=== PATIENT | male | born 1950 | race Caucasian/White ===

== ENCOUNTER 2024-12-24 12:24 | Inpatient (IN) | payer OTHER, SELFPAY ==
[2024-12-24] VITALS (12 sets, daily range): BP systolic 107–198; BP diastolic 75–115; BMI 29.4; BMI 29.7
--- NOTE | 2024-12-24 08:39 | ED.GENMED ---
History of Present Illness
<MICHELLE Mackey Jr. Last Filed: 12/24/24 10:42>
General
Chief Complaint: Breathing Problem
Source: patient
Exam Limitations: none
Time Seen by Provider: 12/24/24 08:31
Nursing documentation reviewed up to this point in time: agreed with
History of Present Illness
History of Present Illness:
74-year-old male without significant chronic medical conditions presenting to the emergency department today with concerns of worsening shortness of breath and dyspnea on exertion as well as coughing up some clear phlegm worsening over the past
week. Seem to start with some noticeable leg swelling which has progressed over the past week. Denies history of such. Is a smoker denies daily drinking no known heart disease. No specific chest pain at any point no recent fevers or upper
respiratory illnesses
Review of Systems
<MICHELLE Mackey Jr. Last Filed: 12/24/24 10:42>
Review of Systems
Allergies reviewed?: Yes
All Other Systems: ROS reviewed and negative except as documented in HPI and ROS
Phy Exam
<MICHELLE Mackey Jr. Last Filed: 12/24/24 10:42>
Physical Exam
Physical Exam:
GENERAL: Alert , in no apparent distress
EYE: pupils equal and reactive
NECK: Supple, no significant adenopathy.
ENT: o/p clr, mmm.
CARDIAC: Regular rate and rhythm .
LUNGS: Clear breath sounds bilaterally, no acute respiratory distress, no wheezes/rales/rhonchi
ABDOMEN: Soft, without focal tenderness, no r/g, no cvat
NEUROLOGICAL: Alert and oriented, no focal neuro deficits
SKIN: Warm and dry, skin intact.
MUSCULOSKELETAL: +2 pitting edema distal to the knees bilaterally, well perfused.
PSYCH: Normal and appropriate interaction.
Scores
<MICHELLE Mackey Jr. Filed: 12/24/24 10:42>
Heart Failure Risk
Heart Failure Risk Score: Not Applicable
Course
<Justino Chau Jr., PA-C - Last Filed: 12/24/24 10:42>
Orders/Labs/Results
Orders:
Orders
12/24/24 08:25
Electrocardiogram (*1) Urgent
Reason for Study: Shortness of Breath
EKG- Treatment ONCE
12/24/24 08:38
Cardiac Monitoring- Treatment ONCE
CR Chest - 2 Views Urgent
Comment:
Reason For Exam: sob swelling
12/24/24 08:41
Complete Blood Count/With Diff Urgent
Comprehensive Metabolic Panel Urgent
Magnesium Urgent
NT-proBNP Urgent
Troponin I Urgent
12/24/24 09:30
Furosemide [Lasix] 40 mg IV NOW STA
12/24/24 09:46
Nitroglycerin Ointment [Nitro-Bid] 1 inch TOPICAL NOW STA
12/24/24 10:06
Urinalysis Reflex To Culture Urgent
Date Specimen was Collected: 12/24/24
Time Specimen was Collected: 09:42
Urine Microscopic Reflex Cult Urgent
Abnormal Lab Results
12/24/24 12/24/24
08:41 10:06
Hct 52.1 H %
(39.0-52.0)
MCV 95.9 H fL
(80.0-94.0)
MCHC 31.9 L g/dL
(33.0-37.0)
Absolute Neuts (auto) 6.8 H 10^3/uL
(1.4-6.5)
Absolute Monos (auto) 1.1 H 10^3/uL
(0.1-0.6)
Lymphocytes % 16.0 L %
(20.5-51.1)
Monocytes % 11.1 H %
(1.7-9.3)
Chloride 96 L mmol/L
(98-107)
Carbon Dioxide 35 H mmol/L
(22-30)
Glucose 111 H mg/dl
(70-99)
Urine Albumin (Reflex) 3+ A
(Neg - Trace)
12/24/24 08:41
12/24/24 08:41
Vital Signs
Initial and Last Documented VS:
Initial Vital Signs
Temp Pulse Resp BP Pulse Ox
98.4 F 108 24 178/108 88
12/24/24 08:19 12/24/24 08:19 12/24/24 08:19 12/24/24 08:19 12/24/24 08:19
Last Documented Vital Signs
Temp Pulse Resp BP Pulse Ox
98.6 F 108 24 193/104 95
12/24/24 08:38 12/24/24 08:19 12/24/24 08:19 12/24/24 09:44 12/24/24 08:37
<Ancelmo Martínez, - Last Filed: 12/24/24 08:49>
Orders/Labs/Results
Orders:
Orders
12/24/24 08:25
Electrocardiogram (*1) Urgent
Reason for Study: Shortness of Breath
EKG- Treatment ONCE
12/24/24 08:38
Cardiac Monitoring- Treatment ONCE
CR Chest - 2 Views Urgent
Comment:
Reason For Exam: sob swelling
12/24/24 08:41
Complete Blood Count/With Diff Urgent
Comprehensive Metabolic Panel Urgent
Magnesium Urgent
NT-proBNP Urgent
Troponin I Urgent
12/24/24 09:30
Furosemide [Lasix] 40 mg IV NOW STA
12/24/24 09:46
Nitroglycerin Ointment [Nitro-Bid] 1 inch TOPICAL NOW STA
12/24/24 10:06
Urinalysis Reflex To Culture Urgent
Date Specimen was Collected: 12/24/24
Time Specimen was Collected: 09:42
Urine Microscopic Reflex Cult Urgent
Abnormal Lab Results
12/24/24 12/24/24
08:41 10:06
Hct 52.1 H %
(39.0-52.0)
MCV 95.9 H fL
(80.0-94.0)
MCHC 31.9 L g/dL
(33.0-37.0)
Absolute Neuts (auto) 6.8 H 10^3/uL
(1.4-6.5)
Absolute Monos (auto) 1.1 H 10^3/uL
(0.1-0.6)
Lymphocytes % 16.0 L %
(20.5-51.1)
Monocytes % 11.1 H %
(1.7-9.3)
Chloride 96 L mmol/L
(98-107)
Carbon Dioxide 35 H mmol/L
(22-30)
Glucose 111 H mg/dl
(70-99)
Urine Albumin (Reflex) 3+ A
(Neg - Trace)
12/24/24 08:41
12/24/24 08:41
Vital Signs
Initial and Last Documented VS:
Initial Vital Signs
Temp Pulse Resp BP Pulse Ox
98.4 F 108 24 178/108 88
12/24/24 08:19 12/24/24 08:19 12/24/24 08:19 12/24/24 08:19 12/24/24 08:19
Last Documented Vital Signs
Temp Pulse Resp BP Pulse Ox
98.6 F 108 24 193/104 95
12/24/24 08:38 12/24/24 08:19 12/24/24 08:19 12/24/24 09:44 12/24/24 08:37
<Justino Chau Jr., PA-C - Last Filed: 12/24/24 10:42>
MDM/Problems Addressed
MDM/Problems Addressed:
74-year-old male presenting to the emergency department today with concerns of worsening shortness of breath leg swelling and dyspnea on exertion over the past week. Significant today. Exercise tolerance very low. Here legs are very swollen pulse
ox initially in the high 80s but improving with nasal cannula. Initially tachycardic and hypertensive with started on Nitropaste also given Lasix. Labs showing significantly elevated BNP other labs unremarkable troponin negative patient will be
admitted for further treatment and monitoring.
<Justino Chau Jr., PA-C - Last Filed: 12/24/24 10:42>
*Critical Care Note
Total Time (30-74mins, 75-104mins- exclusive of procedures): Not Applicable
ED Attending Note
<Justino Chau Jr., PA-C - Last Filed: 12/24/24 10:42>
-
Portions of this chart may have been created with voice recognition software.� Occasional wrong word or��sound alike� substitutions may have occurred due to the inherent limitations of voice recognition software.
<Ancelmo Martínez DO - Last Filed: 12/24/24 08:49>
ED Attending Note
Patient seen and examined by attending physician: Yes
I performed the substantive portion of visit, reviewed & personally made and approve the management plan that is documented in note by myself or PRETTY.: Yes
ED Attending Note:
74-year-old male who presents with shortness of breath. Reports has been ongoing for about a week but over the last 2 days started to see his leg swell. Patient does report a little bit of phlegm production he states it is either white or yellow.
Admits that he does not see a doctor regularly and has no documented medical problems. Admits he has been smoking for 57 years. Still smokes about half a pack a day. Denies true orthopnea. Denies fevers. No hemoptysis. Exam: Poor air movement
bilaterally. Wheezing noted. Slightly tachypneic. Pulse ox 95% on my assessment on 4 L. Significant bilateral lower extremity edema noted with some erythroderma. Assessment and plan: CHF versus COPD. May be combination of both. Could benefit
from diuresis given his right heart failure. Check chest x-ray, labs, anticipate admission. Maintain pulse ox greater than 90%
Discharge Plan
Departure
Patient Disposition: Admit
Date of Disposition: 12/24/24
Time of Disposition: 10:35
Admit to: Telemetry
Admit to doctor: José Luis
Presentation/result/management discussed w/ accepting MD/DO: Hospitalist
Patient with high blood pressure during this ER visit?: No
Condition: Good
Covid-19: Not Applicable
Discharge Problem:
Heart failure
Prescriptions:
No Action
No Current Medications
0
Referrals:
NONE,* [Family Provider, Internal Medicine]
Interventions
Interventions:
*Risk Screen - Suicide Last Done: 12/24/24 08:19
*General Assessment Last Done: 12/24/24 08:39
*Neglect/Abuse Screening Last Done: 12/24/24 08:19
ED- Cardiac Assessment Last Done: 12/24/24 08:54
ED- Pulmonary Assessment Last Done: 12/24/24 08:54
Discharge Date and Time
Print Language: CZECH
[2024-12-24 08:54] LABS: % Basophils 0.7 % (0-2); % Eosinophils 0.5 % (0-6); % Immature Granulocytes 0.2 % (0-0.5); % Monocytes 11.1 % (1.7-9.3); % Neutrophils 71.5 % (42.2-75.2); Absolute Basophils 0.1 10^3/uL (0-0.2); Absolute Eosinophils 0.1 10^3/uL (0-0.7); Absolute Lymphocytes 1.5 10^3/uL (1.2-3.4); Absolute Monocytes 1.1 10^3/uL (0.1-0.6); Absolute Neutrophils 6.8 10^3/uL (1.4-6.5); Hematocrit 52.1 % (39.0-52.0); Hemoglobin 16.6 g/dL (13.0-18.0); Mean Corp Hgb Conc. 31.9 g/dL (33.0-37.0); Mean Corpuscular Hgb 30.6 pg (27.0-31.0); Mean Corpuscular Volume 95.9 fL (80.0-94.0); Mean Platelet Volume 8.5 fL (7.4-10.4); Nucleated Red Blood Cells % 0 % (-); Platelet Count 269 10^3/uL (130-400); Red Blood Cell Count 5.43 10^6/uL (4.70-6.10); Red Cell Dist. Width 13.7 % (11.5-14.5); White Blood Cell Count 9.5 10^3/uL (4.8-10.8)
[2024-12-24 09:11] LABS: ALT (SGPT) 25 U/L (0-50); AST (SGOT) 28 U/L (17-59); Albumin 3.8 g/dl (3.5-5.0); Alkaline Phosphatase 81 U/L (38-126); Blood Urea Nitrogen 18 mg/dl (9-20); Calcium 8.8 mg/dl (8.4-10.2); Carbon Dioxide 35 mmol/L (22-30); Chloride 96 mmol/L (98-107); Estimated Creatinine Clearance 97 ml/min; Glucose 111 mg/dl (70-99); Magnesium 1.8 mg/dl (1.6-2.3); Potassium 4.3 mmol/L (3.5-5.1); Sodium 135 mmol/L (135-145); Total Bilirubin 1.1 mg/dl (0.2-1.3); Total Protein 6.8 g/dl (6.3-8.2); eGFR > 60.00
[2024-12-24 09:18] LABS: NT-proBNP 6750 pg/ml; Troponin I 0.026 ng/ml
[2024-12-24] MEDS: LASIX 40 MG IV ×2 (09:44→15:25)
[2024-12-24] MEDS: NITRO-BID 1 INCH TOPICAL (09:50)
[2024-12-24 10:20] LABS: Urine Albumin 3+ (Neg - Trace); Urine Bilirubin Negative (Negative); Urine Character Clear (Clear); Urine Color Yellow; Urine Glucose Negative (Negative); Urine Ketone Negative (Negative); Urine Leukocyte Negative (Negative); Urine Nitrite Negative (Negative); Urine Occult Blood Negative (Negative); Urine Specific Gravity 1.005 (<1.030); Urine Urobilinogen 1+ (Neg - 1+)
[2024-12-24 10:32] LABS: Urine Mucus Few
[2024-12-24 10:33] LABS: Urine Red Blood Cell 0-2 /HPF (0-2); Urine Urothelial Cell 0-2 /LPF (FEW); Urine White Cell 0-2 /HPF (0-5)
--- NOTE | 2024-12-24 11:48 | HPS.HSE ---
Family Physician
-
Family Physician: * NONE
Chief Complaint
-
Bilateral Lower Extremity Swelling, Shortness of Breath
History of Present Illness
74 y/o male who denied having any past medical history except chronic tobacco smoking and hernia repair, presented with swelling of his legs for the past ~1 week. Patient also has had some shortness of breath for the same duration, also reported
some chest congestion and phlegm production. He denied any chest pain or any pain in his legs from walking. He denied fever, chills, or any other complaints.
Medical History
Past Medical History
Past Medical History: Reports Other (As per HPI above)
Past Surgical History: Reports Other (Hernia Surgery)
Social History
Tobacco: Smoker
Alcohol: None
Drug: None
Family History
Family History: Not pertinent
Allergies / Home Medications
Allergies reflects when Allergies were last updated in [facility].
Home Medications with original date entered in [facility]
Allergy/Medication List:
Allergies
Allergy/AdvReac Type Severity Reaction Status Date / Time
No Known Allergies Allergy Unverified 12/24/24 08:23
Home Medications
No Meds [No Current Medications] 12/24/24
Review of Systems
-
A 12 point ROS was completed and negative except as noted: Yes
Physical Exam
Vital Signs
Vital Signs
Temp Pulse Resp BP Pulse Ox
98.6 F 104 31 178/107 91
12/24/24 08:38 12/24/24 11:15 12/24/24 11:15 12/24/24 11:00 12/24/24 11:00
Physical Exam
General: No Apparent Distress, Comfortable and Conversant
HEENT: NormoCephalic, Moist mucous membranes and Atraumatic
Respiratory: Decreased Breath Sounds
Cardiac: S1/S2 and Regular Rhythm
GI: Soft, Non Tender and Normal Bowel Sounds
Musculoskeletal: No Cyanosis, Edema, Left Lower Extremity and Edema, Right Lower Extremity
Skin: Warm and Dry
Neuro: Awake, Alert, AO x 3 and Nonfocal/grossly intact
Psych: Calm and Intact Judgment/Insight
Laboratory Results
-
12/24/24 08:41
12/24/24 08:41
Laboratory Results
Total Bilirubin 1.1 mg/dl (0.2-1.3) 12/24/24:
AST 28 U/L (17-59) 12/24/24:
ALT 25 U/L (0-50) 12/24/24:
Alkaline Phosphatase 81 U/L (38-126) 12/24/24 08:41
Troponin I 0.026 ng/ml 12/24/24 08:41
Impression/Plan
-
Assessment Plan
Presentation with Bilateral Lower Extremity Swelling and Shortness of Breath Suspected Secondary to Congestive Heart Failure
Significantly High ProBNP
Suspected Acute Heart Failure of Unknown Type
-Continue IV Lasix 40 mg BID
-Will need guideline directed medical therapy
-Daily weights
-I's and O's
-Admit to telemetry
-Consult cardiology
Suspected COPD
-Suggested by patient's x-ray showing hyperinflated lungs and also significant smoking history
-Patient denied any history of COPD
-No pneumonia on chest x-ray
-Will consult pulmonary given suspected undiagnosed COPD in the setting of hypoxia and suspected new CHF
Hypertensive Urgency
-Nitropaste given in the ER with some improvement
-Will optimize antihypertensive regimen
-Low sodium diet
Chronic Tobacco Use
DVT Prophylaxis: Lovenox
Code Status: DNR and DNI (at the time of admission, patient had full-decision making capacity and he confirmed that he is a DNR and DNI and he fully understood what DNR and DNI meant)
--- NOTE | 2024-12-24 13:09 | CON.CAR ---
Addendum entered and electronically signed by Glen Soliz MD 12/24/24 16:28:
Patient seen and examined in collaboration with [employer]; agree with below.
- 74-year-old male with untreated hypertension (does not follow with doctors regularly) and chronic continued cigarette use (+50 years) presenting with shortness of breath; cardiology was consulted for concern for CHF.
- The patient's BNP is elevated at 6750, and the patient's blood pressure is uncontrolled at 198/109 mmHg.
- Chest x-ray shows COPD.
- Patient presenting with hypertensive crisis; blood pressure remains uncontrolled.
- Mild edema on examination.
- Recommend Lasix 40 mg IV BID.
- Will order an echocardiogram.
- D-dimer elevated; patient should be ruled out for pulmonary embolism.
- Will place on valsartan 160 mg daily and Coreg 6.25 mg BID.
- secured entrance monitor.
- CHF education.
- Pulmonary consultation for management of COPD.
- Will follow.
Original Note:
Consultation
Consultation Request
Date/Time Consultation Requested: 12/24/24 1238
Date/Time Consultation Performed: 12/24/24 1300
Requesting Provider: Dr. Christina
Performing Provider: Raegan TY for Dr. Soliz
Reason for Consultation: CHF, HTN
Medical History
-
Chief Complaint: cough, LE edema
History of Present Illness:
74 y/o male with no known medical history (does not see doctors regularly) and current smoker who is here for cough x 2 weeks, then LE edema. He has chronic DESHPANDE, but it has not worsened of recent. He was hypoxic in the 80's and is now on O2 by MO.
BP is severely elevated. He has been administered Lasix and nitropaste. We are consulted for CHF and HTN.
Past Medical History
Past Medical History: None (does not see doctors regularly, so no known medical history )
Social History
Tobacco: Smoker (1/2 PPD 58 years)
Alcohol: Occasional
Drug: None
Family History
Family History: Reviewed & Not Pertinent
Allergies / Home Medications
Allergy/AdvReac Type Severity Reaction Status Date / Time
No Known Allergies Allergy Unverified 12/24/24 08:23
�Medication �Instructions �Recorded �Confirmed �Type
No Meds [No Current Medications] 12/24/24 12/24/24 History
Review of Systems
-
History Source: Patient
All other systems: Negative unless noted
Respiratory: Cough and Trouble Breathing (chronic DESHPANDE)
Musculoskeletal: Edema
Physical Exam
Vital Signs
Temp Pulse Resp BP Pulse Ox
98.6 F 104 31 178/107 91
12/24/24 08:38 12/24/24 11:15 12/24/24 11:15 12/24/24 11:00 12/24/24 11:00
Lab Results
12/24/24 08:41
12/24/24 08:41
Troponin I 0.026 ng/ml 12/24/24 08:41
Hmw-I-Ddygvpjouik Pept 6750 pg/ml 12/24/24 08:41
Physical Exam
General: Well Developed, Well Nourished and No Apparent Distress
HEENT: Normocephalic and Anicteric
Respiratory: Other (diminished to BL bases; on O2 by NC)
Cardiac: Regular Rhythm
Musculoskeletal: Edema
Skin: Warm, Dry and Other (RLE red and warm)
Neuro: AO x 3
Psych: Calm
Impression / Plan
-
Acute HF, type unknown:
-agree with IV diuresis, which requires intensive monitoring
-obtain echo
-CHF education
Hypertension, severely elevated in ER:
-nitro-paste placed and IV Lasix administered
-also add ARB
Tobacco abuse:
-recommend total cessation
-pulmonary consulted for suspected COPD (which is contributing to SOB)
LE edema:
-monitor with diuresis
-RLE is red and warm- u/s negative. Will check d-dimer. Denies fever or chills. W/u per primary team.
Data Reviewed
-
EKG: Tracing Personally Visualized and interpreted (ST 103 BPM)
Radiology: Report Reviewed by me (CXR: Hyperinflated lungs suggesting COPD. No radiographic findings to suggest pneumonia or pulmonary edema.)
Medical Tests (Nuc Med, Echo etc): Other (echo ordered)
Labs: Labs Reviewed by me
[2024-12-24 14:54] LABS: Troponin I 0.023 ng/ml
--- NOTE | 2024-12-24 15:10 | PTCARENOTE ---
Received pt from ED into room 405-2. Pt ambulatory to bed with no assistance. Pt AAOx3. Hypertensive. RLE warm, red with +2 swelling. Sinus tachycardia/NSR on compliance monitor. Reports no pain. Pt oriented to room, no complaints at this time.
[2024-12-24 15:18] LABS: INR 1.08; PT 14.5 Sec (11.4-14.6)
[2024-12-24] MEDS: DIOVAN 160 MG PO (15:25)
--- NOTE | 2024-12-24 16:27 | CON.PUL ---
Consultation
Consultation Request
Date/Time Consultation Requested: 12/24/2024
Date/Time Consultation Performed: 12/24/2024
Requesting Provider: Dr. Power
Performing Provider: Dr. Dell Felder
Reason for Consultation: COPD-possible exacerbation
Medical History
-
History of Present Illness:
74-year-old man who denied any significant past medical history, tobacco abuse, presented with lower extremity swelling for the last week. Also reports exertional shortness of breath for 1 to 2 weeks associated with chest congestion and phlegm
production.
Denies exertional chest pain. Denies leg discoloration fevers or chills.
Denies hemoptysis or phlegm production.
Does report chronic shortness of breath, symptoms worsened over the last week.
Chronic shortness of breath has been for years with activity.
Used to smoke a pack a day for 58 years. More recently has cut down.
His weight has been stable.
No prior diagnosis of COPD.
Past Medical History
Past Medical History: Other (See assessment and plan)
Social History
Tobacco: Smoker
Alcohol: None
Drug: None
Family History
Family History: Reviewed & Not Pertinent
Allergies / Home Medications
Allergies
Allergy/AdvReac Type Severity Reaction Status Date / Time
No Known Allergies Allergy Unverified 12/24/24 08:23
Home Medications
�Medication �Instructions �Recorded �Confirmed �Last Taken �Type
No Meds [No Current Medications] 12/24/24 12/24/24 Unknown History
Review of Systems
-
History Source: Patient
All other systems: Negative unless noted
Vitals / Labs / Diagnostic Testing
Vital Signs
Temp Pulse Resp BP Pulse Ox
98.5 F 107 20 188/104 92
12/24/24 14:30 12/24/24 14:30 12/24/24 14:30 12/24/24 14:30 12/24/24 15:17
Lab Data
12/24/24 08:41
12/24/24 08:41
Laboratory Results
12/24/24
14:53
PT 14.5
INR 1.08
Diagnostic Testing:
Physical Exam
-
HEENT: Normocephalic
Cardiovascular: S1/S2 and Peripheral Edema (2+ bilateral-erythema noted.)
Respiratory: Wheeze (n) and Non-Labored Respirations
GI: Soft and Non Distended
Neurology: Awake, Alert and AO x 3
Skin: Warm
General: Comfortable
Assessment
-
74-year-old man without significant past medical history, does not take any medication. Come to the hospital complaining of 1 week of exertional shortness of breath. Also lower extremity edema. Chest x-ray showed hyperinflation. We were
consulted evaluation of possible COPD on 12/24/2024.
Exertional dyspnea:
Hypoxemic respiratory failure-currently on 3 L per L
New onset heart failure-unknown type
Shortness of breath/lower extremity edema/increased proBNP-6750
Chest x-ray 12/24/2024: Reviewed showed hyperinflation. No acute infiltrate.
Negative troponin
EKG: Sinus tachycardia. Possible left atrial enlargement.
Pulmonary embolism cannot be ruled out.
Uncontrolled hypertension
Lower extremity swelling, mild erythema bilaterally.
Dopplers: No evidence for DVT
Possible COPD: Without exacerbation.
Tobacco abuse
Assessment and plan:
Clinical picture suggest heart failure-unknown time. Increased proBNP, lower extremity edema.
Chest x-ray without significant infiltrates or pulmonary edema.
With mildly increased D-dimer/bilateral lower extremity edema cannot rule out pulmonary embolism-obtain CT angiogram. Will follow.
Monitor renal function postcontrast.
-
Echocardiogram pending
Diuresis as the patient is hypertensive
Cardiology has been consulted
-
From the pulmonary perspective: Not bronchospastic
Patient does have a component of chronic exertional dyspnea which could be explained by COPD. Not in acute exacerbation at the moment.
Chest x-ray with hyperinflation
Patient is a smoker-40+ pack year history of smoking. Ongoing.
Eventual pulmonary function testing
Denies any prior symptoms-hold off on bronchodilation for now.
Would be a candidate for low-dose radiation CAT scan for cancer screening.
-
Smoking cessation counseling provided.> 5 minutes spent.
-
DVT prophylaxis with Lovenox
-
Will follow
-
Will benefit from pulmonary follow-up with pulmonary function testing etc.
-
[2024-12-24] MEDS: LOVENOX 40 MG SC (17:47)
[2024-12-24] MEDS: KEFLEX 500 MG PO ×2 (17:48→21:52)
[2024-12-24] MEDS: COREG 6.25 MG PO (20:08)
[2024-12-24 20:30] LABS: Troponin I 0.025 ng/ml
[2024-12-25] VITALS (15 sets, daily range): BP systolic 70–149; BP diastolic 43–84; PULSE 2–88; BMI 29.3
[2024-12-25 06:19] LABS: Hemoglobin 16.3 g/dL (13.0-18.0); Mean Corp Hgb Conc. 32.6 g/dL (33.0-37.0); Mean Corpuscular Hgb 31.9 pg (27.0-31.0); Mean Corpuscular Volume 97.8 fL (80.0-94.0); Mean Platelet Volume 8.8 fL (7.4-10.4); Platelet Count 253 10^3/uL (130-400); Red Blood Cell Count 5.11 10^6/uL (4.70-6.10); Red Cell Dist. Width 13.6 % (11.5-14.5); White Blood Cell Count 8.9 10^3/uL (4.8-10.8)
[2024-12-25 06:45] LABS: Blood Urea Nitrogen 20 mg/dl (9-20); Calcium 8.3 mg/dl (8.4-10.2); Carbon Dioxide 36 mmol/L (22-30); Chloride 93 mmol/L (98-107); Estimated Creatinine Clearance 81 ml/min; Glucose 103 mg/dl (70-99); HDL Cholesterol 46 mg/dl; LDL Cholesterol, Calculated 122 mg/dl; Magnesium 1.7 mg/dl (1.6-2.3); Potassium 4.3 mmol/L (3.5-5.1); Sodium 135 mmol/L (135-145); Total Cholesterol 185 mg/dl (50-199); Triglyceride 88 mg/dl (10-149); Very Low Density Lipoprotein 17 mg/dl (0-30); eGFR > 60.00
--- NOTE | 2024-12-25 08:10 | W.PN.CD ---
Today's Communication / Plan
-
continue IV diuresis with intensive monitoring
Impression / Plan
-
Acute HF, type unknown:
-diuresing nicely
-continue with IV diuresis, which requires intensive monitoring
-obtain echo today
-CHF education
-CM consult for pricing for GDMT based on echo results
Hypertension, severely elevated in ER:
-continue arb, bb and lasix
Tobacco abuse:
-recommended total cessation
-pulmonary consulted for suspected COPD (which is contributing to SOB)
LE edema:
-monitor with diuresis
-RLE is red and warm- u/s negative. Will check d-dimer. Denies fever or chills. W/u per primary team.
Physical Exam
Vital Signs/Labs
Vital Signs
Temp Pulse Resp BP Pulse Ox
98.4 F 101 20 149/84 93
12/25/24 07:57 12/25/24 07:57 12/25/24 07:57 12/25/24 07:57 12/25/24 07:57
12/24/24 12/25/24 12/26/24
06:59 06:59 06:59
Actual Weight 219 lb 0.3 oz
12/25/24 05:47
12/25/24 05:46
PT 14.5 Sec (11.4-14.6) 12/24/24 14:53
INR 1.08 12/24/24 14:53
Magnesium 1.7 mg/dl (1.6-2.3) 12/25/24 05:46
Triglycerides 88 mg/dl (10-149) 12/25/24 05:46
LDL Cholesterol, Calc 122 mg/dl 12/25/24 05:46
VLDL Cholesterol, Calc 17 mg/dl (0-30) 12/25/24 05:46
HDL Cholesterol 46 mg/dl 12/25/24 05:46
12/24/24
08:41
Unj-K-Gtbyrqojtdi Pept 6750
LAB Results
12/24/24 12/24/24 12/24/24
08:41 14:02 19:59
Troponin I 0.026 0.023 0.025
12/25/24 12/25/24
01:40 07:40
Troponin I Cancelled Cancelled
Physical Exam
Constitutional: No acute distress
Cardiovascular: Rhythm & rate is regular, Systolic murmur absent, Diastolic murmur absent and Pedal edema present (trace edema)
Respiratory: Respiratory effort normal, Lungs clear to auscul. and Rhonchi Present (diffuse)
Data Reviewed
-
Date of Service: December 25, 2024
Medical Decision Making: Review of Case with other Provider (Dr Clement continue diuresis)
[2024-12-25] MEDS: KEFLEX 500 MG PO (09:44)
[2024-12-25] MEDS: LASIX 40 MG IV ×2 (09:44→16:55)
[2024-12-25] MEDS: DIOVAN 160 MG PO (09:44)
[2024-12-25] MEDS: COREG 6.25 MG PO ×2 (09:44→19:23)
[2024-12-25] MEDS: FLUSH (NSS) 2 FLUSH IV (09:45)
--- NOTE | 2024-12-25 09:46 | W.PN.HOSP.TC ---
Today's Communication/Plan
-
Rapid Response
Hypercapnia
BiPAP
Antibiotics
See below
Assessment / Plan
Assessment / Plan
Physical Exam
General: No Apparent Distress, Comfortable and Conversant
HEENT: Normocephalic, Moist mucous membranes and Atraumatic
Respiratory: Decreased Breath Sounds with some coarse breath sounds
Cardiac: S1/S2 and Regular Rhythm
GI: Soft, Non Tender and Normal Bowel Sounds
Musculoskeletal: No Cyanosis, Edema, Left Lower Extremity and Edema, Right Lower Extremity
Skin: Warm and Dry
Neuro: Lethargic
Assessment Plan
Lethargy and Vomiting on 12/25/24
Acute Hypoxic and Hypercapnic Respiratory Failure
-Rapid Response was called on 12/25/24; I was present for the rapid response; BiPAP ordered, patient started vomiting so BiPAP had to be held, but BiPAP was later able to be resumed
-Patient appeared to have coughed up mucus and then gagged on the mucus
-ABG revealed significant hypercapnia -- improving with BiPAP
-Continue BiPAP (since patient is DNI, there is no other option other than BiPAP for his hypercapnia)
-IV steroids
-Duonebs and Pulmicort
-Maintain NPO for now
-Previously CT Chest was negative for PE
-Consulted pulmonary given suspected undiagnosed COPD in the setting of hypoxia and suspected new CHF
Suspected RLL Pneumonia on CXR
-Star Zosyn, possible aspiration
Presentation with Bilateral Lower Extremity Swelling and Shortness of Breath Suspected Secondary to Congestive Heart Failure
Significantly High ProBNP
Suspected Acute Heart Failure of Unknown Type
Cor Pulmonale
-Continue IV Lasix 40 mg BID
-Aldactone added but patient currently unable to tolerate PO meds
-Will need guideline directed medical therapy
-Daily weights
-I's and O's
-Consulted cardiology
Right Lower Extremity Cellulitis
-Start Zosyn as above
-Stop Ancef
-Follow MRSA
Hypertensive Urgency
-Nitropaste given in the ER with some improvement
-Optimizing antihypertensive regimen/GDMT
-Low sodium diet
Chronic Tobacco Use
DVT Prophylaxis: Lovenox
Code Status: DNR and DNI (at the time of admission, patient had full-decision making capacity and he confirmed that he is a DNR and DNI and he fully understood what DNR and DNI meant)
Anticipated Discharge: > 48 hours
Subjective/Interval History
-
Date of Service: December 25, 2024
Patient was seen and examined. In the morning he was okay, but later in the day rapid response was called due to patient's lethargy.
Objective Data
-
Labs:
Laboratory Results
12/25/24 12/25/24
05:46 05:47
WBC 8.9
Hgb 16.3
Hct 50.0
Plt Count 253
Sodium 135
Potassium 4.3
Chloride 93 L
Carbon Dioxide 36 H
BUN 20
Creatinine 0.9
Glucose 103 H
Calcium 8.3 L
Vital Signs:
Vital Signs
Temp Pulse Resp BP Pulse Ox
98.4 F 101 20 149/84 93
12/25/24 07:57 12/25/24 07:57 12/25/24 07:57 12/25/24 07:57 12/25/24 07:57
I&O
12/24/24 12/25/24 12/26/24
06:59 06:59 06:59
Intake Total 480 / 480
Output Total 5 / 2545
Balance -2064 /
[2024-12-25 09:53] LABS: Glycohemoglobin (HgbA1c) 5.8 % (4.0-5.6)
[2024-12-25 12:27] LABS: Glucose - Point of Care 148 mg/dl (70-99)
[2024-12-25 12:50] LABS: % Basophils 0.5 % (0-2); % Eosinophils 0.4 % (0-6); % Immature Granulocytes 0.2 % (0-0.5); % Lymphocytes 13.6 % (20.5-51.1); % Monocytes 9.6 % (1.7-9.3); % Neutrophils 75.7 % (42.2-75.2); Absolute Basophils 0.1 10^3/uL (0-0.2); Absolute Lymphocytes 1.2 10^3/uL (1.2-3.4); Absolute Monocytes 0.9 10^3/uL (0.1-0.6); Absolute Neutrophils 6.9 10^3/uL (1.4-6.5); Hematocrit 53.1 % (39.0-52.0); Hemoglobin 16.3 g/dL (13.0-18.0); Mean Corp Hgb Conc. 30.7 g/dL (33.0-37.0); Mean Corpuscular Hgb 30.6 pg (27.0-31.0); Mean Corpuscular Volume 99.6 fL (80.0-94.0); Mean Platelet Volume 8.5 fL (7.4-10.4); Nucleated Red Blood Cells % 0 % (-); Platelet Count 259 10^3/uL (130-400); Red Blood Cell Count 5.33 10^6/uL (4.70-6.10); Red Cell Dist. Width 13.5 % (11.5-14.5); White Blood Cell Count 9.2 10^3/uL (4.8-10.8)
[2024-12-25 12:53] LABS: O2 Saturation % 97.9 % (94-98); PO2 93 mmHg (83-108); pH 7.23 (7.35-7.45)
--- NOTE | 2024-12-25 12:53 | W.PN.PUL3 ---
Today's Communication / Plan
-
Transferred to IMU
Start emergent BiPAP 15/ and titrate as tolerated
Avoid sedatives
Start Pulmicort/DuoNeb
Start IV corticosteroids
Continue oxygen supplementation
N.p.o. for now
Repeat ABG in 60 minutes
Low threshold to transfer to the critical care unit.
High risk situation
DNR status noted.
Assessment
-
74-year-old man without significant past medical history, does not take any medication. Come to the hospital complaining of 1 week of exertional shortness of breath. Also lower extremity edema. Chest x-ray showed hyperinflation. We were
consulted evaluation of possible COPD on 12/24/2024.
Acutely transferred to IMU 12/25/2024 for change in mental status and likely hypercapnia.
Exertional dyspnea:
Acute on chronic hypercapnic respiratory failure-due to underlying severe COPD suspected/suspect acute exacerbation as well.
pCO2 greater than 100
Hypoxemic respiratory failure-currently on 3 L per L
New onset heart failure-unknown type
Shortness of breath/lower extremity edema/increased proBNP-6750
Chest x-ray 12/24/2024: Reviewed showed hyperinflation. No acute infiltrate.
Negative troponin
EKG: Sinus tachycardia. Possible left atrial enlargement.
Pulmonary embolism cannot be ruled out.
Uncontrolled hypertension
Lower extremity swelling, mild erythema bilaterally.
Dopplers: No evidence for DVT
Possible COPD: Without exacerbation.
Tobacco abuse
Assessment and plan:
-
Patient now critically ill: Became lethargic, increased work of breathing 12/25/2024.
To my evaluation-patient had eyes open, able to move 4 extremities, mild cough on demand but unable to provide further history.
Lung exam with prolonged expiratory phase
-
Echocardiogram noted with RV dysfunction and severe pulmonary hypertension-CT angiogram without pulmonary embolism or infiltrates.
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
Patient does have metabolic alkalosis on BMP.
-
Gentle diuresis as able given significant RV dysfunction.
ABG was sent will review. Preliminarily pCO2 greater than 100. Likely explains change in mental status.
Start empirical BiPAP 15/
Transfer to IMU
Patient is DNR
Avoid sedatives
High risk situation.
-
Cardiology following the patient as well.
-
For possible underlying COPD: Nebulizers
Pulmicort/DuoNebs started given decompensation.
Start IV dexamethasone.
-
Monitor mental status if there is no improvement despite correction of pCO2 a CT of the head may be needed.
-
Patient is a smoker-40+ pack year history of smoking. Ongoing.
Nicotine replacement
-
DVT prophylaxis with Lovenox
-
Will follow
Transferred to IMU, low threshold to transfer to critical care unit if there is no improvement in the next 30 minutes to 60 minutes.
Discussed with primary team.
-
Critical care statement: A total of 38 minutes of critical care time was provided for this patient today. This includes management of unstable vital signs, evaluation of the patient at bedside, reviewing the patient's pertinent medical records
including ventilator settings, arterial blood gases, radiographs, microbiology, laboratory evaluations and discussion with primary team, critical care nursing, and respiratory therapy.
Subjective Data
-
Date of Service:
Date of Service: December 25, 2024
Chief Complaint: Pulmonary Follow Up (Acute hypoxemic respiratory failure)
Subjective:
This morning patient developed change in mental status, increased work of breathing, lethargy.
Became more hypoxemic.
Being transferred to IMU. Unable to provide history.
Only weak cough effort.
Review of Systems
General: Other (Unable to provide history due to change in mental status.)
Objective Data
Data Reviewed
Vital Signs / I&O / Oxygen:
Vital Signs
Temp Pulse Resp BP Pulse Ox
98.1 F 92 18 114/56 93
12/25/24 11:40 12/25/24 11:40 12/25/24 11:40 12/25/24 11:40 12/25/24 11:40
Intake and Output
12/24/24 12/25/24 12/26/24
06:59 06:59 06:59
Intake Total 480 / 480 240 / 240
Output Total 2545 / 2545
Balance -2064 / -2064 240 / 240
SaO2 93
Nasal Cannula flow liters per 3
minute
Physical Exam
General: Respiratory Distress (At rest)
HEENT: Normocephalic
Cardiovascular: S1-S2 and Regular Rhythm
Respiratory: Crackles (n) and Other (Prolonged expiratory phase)
GI: Soft, Distended (Obese) and Non Tender
Neurology: Awake, Other (Mild cough on demand. Able to move 4 extremities.) and Other (Lethargic but arousable.)
Skin: Warm
Labs/Micro/Reports
Lab Data
12/25/24 12:35
Laboratory Results
12/24/24
14:53
PT 14.5
INR 1.08
--- NOTE | 2024-12-25 12:53 | RR ---
A Rapid Response was called on this patient, please see Rapid Response form. entered patients room to give medications, patient moaning out but would not opening eyes, not following commands. some response with sternal rub, patient with moist harsh
cough, attempted to suction, some response but unable to get any secretions. Dr Christina texted and rapid response called.
[2024-12-25 12:57] LABS: PT 14.7 Sec (11.4-14.6)
[2024-12-25 12:58] LABS: PCO2 > 115 mmHg (35-48)
[2024-12-25 12:58] LABS: APTT 31.8 Sec (23.4-35.0)
[2024-12-25 12:59] LABS: HCO3 48.2 mmol/L (21-28)
[2024-12-25 13:00] LABS: Lactic Acid 0.9 mmol/L (0.7-2.0)
[2024-12-25 13:15] LABS: ALT (SGPT) 24 U/L (0-50); AST (SGOT) 29 U/L (17-59); Albumin 3.8 g/dl (3.5-5.0); Alkaline Phosphatase 76 U/L (38-126); Blood Urea Nitrogen 21 mg/dl (9-20); Calcium 8.7 mg/dl (8.4-10.2); Chloride 88 mmol/L (98-107); Estimated Creatinine Clearance 73 ml/min; Glucose 152 mg/dl (70-99); Potassium 4.5 mmol/L (3.5-5.1); Sodium 135 mmol/L (135-145); Total Protein 6.9 g/dl (6.3-8.2); Troponin I 0.032 ng/ml; eGFR > 60.00
[2024-12-25 13:26] LABS: Carbon Dioxide 40 mmol/L (22-30)
[2024-12-25] MEDS: ALDACTONE PO (14:07)
[2024-12-25] MEDS: KEFLEX PO (14:08)
[2024-12-25] MEDS: DECADRON 6 MG IV (14:14)
[2024-12-25] MEDS: ANCEF 5 IV (14:14)
[2024-12-25 14:29] LABS: B.E. 13.5 mmol/L; O2 Saturation % 91.5 % (94-98); PO2 62 mmHg (83-108); pH 7.26 (7.35-7.45)
[2024-12-25 14:32] LABS: HCO3 46.2 mmol/L (21-28); PCO2 103 mmHg (35-48)
--- NOTE | 2024-12-25 15:00 | PTCARENOTE ---
Patient received from . Patient somewhat AAO, drowsy. VSS. Patient was vomiting as he entered the room, presumed to be due to cough and choking on mucus, no episodes since. Was placed on BiPAP upon arrival and to have an ABG drawn approx 1
hour after being on BiPAP. Orders to get changed to IV giving patient current mentation. Patient was upgraded to ICU after arrival but was agreed upon to reassess after ABG. Call araya in reach.
[2024-12-25] MEDS: PULMICORT 0.5 MG INH ×2 (15:24→19:27)
[2024-12-25] MEDS: DUONEB 3 ML INH ×2 (15:24→19:27)
--- NOTE | 2024-12-25 15:48 | W.PN.UPDATE ---
Update Note
Progress Note Update
On reevaluation-mental status improving.
ABG improving but is still pCO2 of 100.
Now patient has a cough effort.
Lung exam relatively clear
Chest x-ray with possible right lower lobe abnormality-cannot rule out aspiration. Agree with starting antibiotics
Aspiration precautions
Will keep n.p.o. until mental status improves
BiPAP adjusted
Continue BiPAP until fully awake, If mental status back to baseline then can take a break but definitely has to be used at night.
Obtain ABG in the morning
Additional critical care time 25-minute
--- NOTE | 2024-12-25 16:09 | CM ---
CM reviewed chart, patient seen bedside asleep, with BiPap. CM received consult for cost of medications- spoke with [facility]: Jardiance 10 mg daily- 30 day supply $151.03, 90 day supply $420.90, Farxiga 10 mg daily- 30 day supply $143.90, $401.03,
Entresto 49/51 mg po BID- 30 day supply $84.69, 90 day supply $235.79. CM will discuss with patient cost, complete IA assessment when patient awake. CM will continue to follow for all discharge planning needs.
Plan; TBD, will return to complete IA when patient awake.
[2024-12-25] MEDS: STERILE WATER FOR INJECTION 20 ML IV (16:56)
[2024-12-25] MEDS: ROCEPHIN 2000 MG IV (16:56)
[2024-12-25] MEDS: DECADRON 4 MG IV (17:01)
[2024-12-25] MEDS: LOVENOX 40 MG SC (17:01)
--- NOTE | 2024-12-25 18:48 | PTCARENOTE ---
Patient off BiPAP, eating dinner. To go back on HS.
[2024-12-25] MEDS: VIBRAMYCIN 100 MG PO (19:23)
[2024-12-25 22:44] LABS: Glucose - Point of Care 197 mg/dl (70-99)
--- NOTE | 2024-12-25 23:35 | PTCARENOTE ---
Approximately @ 2230 patient started to moan/ yell/ grunt in bed. Vitals WNL. Pt with profuse diaphoresis. Able to state he was in the hospital. Pt unable to state why he was grunting. Denied any pain. RT at bedside and placed Bipap. Blood sugar
check WNL. 1 hour later pt reassessed and pt not grunting anymore. When asked if he was ok, pt nodded 'yes'. Bipap remains in place. call araya within reach. bed alarm set.
[2024-12-26] VITALS (15 sets, daily range): BP systolic 97–152; BP diastolic 60–83; PULSE 2–75; BMI 29.6
[2024-12-26] MEDS: DECADRON 4 MG IV ×5 (00:28→23:13)
[2024-12-26 04:15] LABS: B.E. 16.8 mmol/L; O2 Saturation % 97.9 % (94-98); PCO2 59 mmHg (35-48); PO2 80 mmHg (83-108); pH 7.48 (7.35-7.45)
[2024-12-26 04:21] LABS: HCO3 43.9 mmol/L (21-28)
[2024-12-26 04:26] LABS: Hematocrit 45.9 % (39.0-52.0); Mean Corp Hgb Conc. 32.7 g/dL (33.0-37.0); Mean Corpuscular Hgb 31.1 pg (27.0-31.0); Mean Platelet Volume 8.7 fL (7.4-10.4); Platelet Count 237 10^3/uL (130-400); Red Blood Cell Count 4.83 10^6/uL (4.70-6.10); Red Cell Dist. Width 13.2 % (11.5-14.5); White Blood Cell Count 4.6 10^3/uL (4.8-10.8)
--- NOTE | 2024-12-26 04:26 | PTCARENOTE ---
Critical HC03 reported to [facility]; aware of patient's yelling episode earlier tonight.
[2024-12-26 04:41] LABS: Blood Urea Nitrogen 27 mg/dl (9-20); Calcium 8.7 mg/dl (8.4-10.2); Chloride 90 mmol/L (98-107); Estimated Creatinine Clearance 73 ml/min; Glucose 115 mg/dl (70-99); Magnesium 1.8 mg/dl (1.6-2.3); Potassium 4.8 mmol/L (3.5-5.1); Sodium 134 mmol/L (135-145); eGFR > 60.00
[2024-12-26 04:54] LABS: Carbon Dioxide 39 mmol/L (22-30)
[2024-12-26] MEDS: DUONEB 3 ML INH ×4 (07:23→19:45)
[2024-12-26] MEDS: PULMICORT 0.5 MG INH ×2 (07:23→19:46)
--- NOTE | 2024-12-26 07:29 | W.PN.HOSP.TC ---
Today's Communication/Plan
-
Continue IV steroids, antibiotics and BiPAP
Assessment / Plan
Assessment / Plan
Physical Exam
General: No Apparent Distress, Comfortable and Conversant
HEENT: Normocephalic, Moist mucous membranes and Atraumatic
Respiratory: Decreased Breath Sounds bilaterally
Cardiac: S1/S2 and Regular Rhythm
GI: Soft, Non Tender and Normal Bowel Sounds
Musculoskeletal: No Cyanosis, Edema, Left Lower Extremity and Edema, Right Lower Extremity
Skin: Warm and Dry
Neuro: Lethargic
Assessment Plan
Lethargy and Vomiting on 12/25/24
Acute Hypoxic and Hypercapnic Respiratory Failure
-Rapid Response was called on 12/25/24; I was present for the rapid response; BiPAP ordered, patient started vomiting so BiPAP had to be held, but BiPAP was later able to be resumed
-Patient appeared to have coughed up mucus and then gagged on the mucus
-ABG revealed significant hypercapnia -- improved with BiPAP
-Continue BiPAP (since patient is DNI, there is no other option other than BiPAP for his hypercapnia)
-Continue IV steroids
-Duonebs and Pulmicort
-Previously CT Chest was negative for PE
-Consulted pulmonary given suspected undiagnosed COPD in the setting of hypoxia and suspected new CHF
-Today patient is much more alert and not needing oxygen
Suspected RLL Pneumonia on CXR
-Continue antibiotics as below
Presentation with Bilateral Lower Extremity Swelling and Shortness of Breath Suspected Secondary to Congestive Heart Failure
Significantly High ProBNP
Suspected Acute Heart Failure of Unknown Type
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
Severe Pulmonary Hypertension
-Echocardiogram noted with RV dysfunction and severe pulmonary hypertension-CT angiogram without pulmonary embolism or infiltrates.
-Increase IV Lasix from 40 mg BID to 80 mg BID
-Aldactone added but patient currently unable to tolerate PO meds
-Will need guideline directed medical therapy: MRA started given cor pulmonale
-Daily weights
-I's and O's
-Consulted cardiology
Right Lower Extremity Cellulitis
-Continue Cephalosporin and Doxycycline as for the pneumonia above, patient's cellulitis is improving
-MRSA negative
Hypertensive Urgency
-Nitropaste given in the ER with some improvement
-Optimizing antihypertensive regimen/GDMT
-Low sodium diet
Chronic Tobacco Use
DVT Prophylaxis: Lovenox
Code Status: DNR and DNI (at the time of admission, patient had full-decision making capacity and he confirmed that he is a DNR and DNI and he fully understood what DNR and DNI meant)
Anticipated Discharge: > 48 hours
Subjective/Interval History
-
Date of Service: December 26, 2024
Patient was seen and examined. He tolerated BiPAP well overnight. He denied any chest pain or shortness of breath.
Objective Data
-
Labs:
Laboratory Results
12/26/24 12/26/24
04:00 04:05
WBC 4.6 L
Hgb 15.0
Hct 45.9
Plt Count 237
HCO3 43.9 H*
Sodium 134 L
Potassium 4.8
Chloride 90 L
Carbon Dioxide 39 H
BUN 27 H
Creatinine 1.0
Glucose 115 H
Calcium 8.7
Vital Signs:
Vital Signs
Temp Pulse Resp BP Pulse Ox
98.3 F 83 18 140/81 95
12/26/24 03:35 12/26/24 07:24 12/26/24 07:24 12/26/24 06:00 12/26/24 07:24
I&O
12/25/24 12/26/24 12/27/24
06:59 06:59 06:59
Intake Total 480 / 480 240 / 240
Output Total 2545 / 2545 800 / 800
Balance -5 / -2065 -560 / -560
[2024-12-26] MEDS: LASIX 40 MG IV ×2 (08:15→11:30)
[2024-12-26] MEDS: COREG 6.25 MG PO ×2 (08:15→19:04)
[2024-12-26] MEDS: VIBRAMYCIN 100 MG PO ×2 (08:15→19:04)
[2024-12-26] MEDS: DIOVAN 160 MG PO (08:15)
[2024-12-26] MEDS: ALDACTONE 12.5 MG PO (08:15)
--- NOTE | 2024-12-26 09:09 | W.PN.CD ---
Today's Communication / Plan
-
increase lasix
increase MRA
Impression / Plan
-
Acute hypercarbic respiratory failure:
-?22 to aspiration event
-improved with BIPAP
Acute HF, Cor Pulmonale with RV failure
-diuresing but will increase lasix at didn't put out well yesterday
-increase to 80mg IV bid now
-CHF education
-CM consult for pricing for GDMT
-given cor pulmonale MRA started first
Hypertension, severely elevated in ER:
-continue arb, bb and lasix
-Added mra, will increased to 25mg daily
Severe Pulmonary HTN:
-multifactorial HTN/DD, COPD
-very poor prognosis
Tobacco abuse:
-recommended total cessation
-pulmonary consulted for suspected COPD (which is contributing to SOB)
LE edema:
-monitor with diuresis
-RLE is red and warm- u/s negative. Will check d-dimer. Denies fever or chills. W/u per primary team.
Subjective:
He is feeling better, had a possible aspiration event last night, he required bipap
Data Reviewed:
TTE 12/25/24
CONCLUSIONS
-Left ventricular ejection fraction is 55-60%, by visual assessment. Cannot
exclude basal inferior wall hypokinesis. Flattened septum in systole and
diastole consistent with RV pressure and volume overload.
-Enlarged right ventricular size. Reduced right ventricular systolic function.
-Aortic sclerosis without stenosis.
-Mild to moderate tricuspid regurgitation. Estimated pulmonary artery pressure
of 80-85 mmHg.
-The IVC is dilated and does not collapse.
Physical Exam
Vital Signs/Labs
Vital Signs
Temp Pulse Resp BP Pulse Ox
98 F 88 18 152/83 95
12/26/24 07:55 12/26/24 08:15 12/26/24 07:24 12/26/24 08:15 12/26/24 07:24
12/25/24 12/26/24 12/27/24
06:59 06:59 06:59
Actual Weight 219 lb 0.3 oz 217 lb 13.067 oz
12/26/24 04:05
12/26/24 04:05
PT 14.7 Sec (11.4-14.6) H 12/25/24 12:35
INR 1.10 12/25/24 12:35
APTT 31.8 Sec (23.4-35.0) 12/25/24 12:35
Magnesium 1.8 mg/dl (1.6-2.3) 12/26/24 04:05
Triglycerides 88 mg/dl (10-149) 12/25/24 05:46
LDL Cholesterol, Calc 122 mg/dl 12/25/24 05:46
VLDL Cholesterol, Calc 17 mg/dl (0-30) 12/25/24 05:46
HDL Cholesterol 46 mg/dl 12/25/24 05:46
12/24/24
08:41
Ruy-V-Rptrhwusbuv Pept 6750
LAB Results
12/24/24 12/24/24 12/24/24
08:41 14:02 19:59
Troponin I 0.026 0.023 0.025
12/25/24 12/25/24 12/25/24
01:40 07:40 12:35
Troponin I Cancelled Cancelled 0.032
Physical Exam
Constitutional: No acute distress
Cardiovascular: Rhythm & rate is regular, JVD present (V wave) and S1S2 is normal
Respiratory: Respiratory effort normal and Crackles Present (right base)
Neuro/Psych: AO x 3
Data Reviewed
-
Date of Service: December 26, 2024
Medical Decision Making: Review of Case with other Provider (Dr Jacobo, increase lasix and MRA)
EKG: Other (tele sinus)
--- NOTE | 2024-12-26 09:16 | PTCARENOTE ---
Patient received from overnight babysitter. Patient resting comfortably in bed. AAO, VSS. No events noted overnight. No complaints of pain. No fluids via IV. Patient was on BiPAP overnight. ABG drawn this AM (7.48/59/80/43.9), improved since
yesterday. No tests scheduled at this time. Call araya in reach.
--- NOTE | 2024-12-26 11:34 | W.PN.PUL3 ---
Today's Communication / Plan
-
Continue BiPAP at the current setting as needed and at bedtime
IV corticosteroids without change for today
DuoNeb/Pulmicort
Oxygen supplementation to maintain pulse ox above 88%
Incentive spirometry
Diuresis/antihypertensives
Antibiotics for possible right lower lobe pneumonia suspect aspiration-would complete 5 days if clinically improved
Assessment
-
74-year-old man without significant past medical history, does not take any medication. Come to the hospital complaining of 1 week of exertional shortness of breath. Also lower extremity edema. Chest x-ray showed hyperinflation. We were
consulted evaluation of possible COPD on 12/24/2024.
Acutely transferred to IMU 12/25/2024 for change in mental status and likely hypercapnia.
Exertional dyspnea:
Acute on chronic hypercapnic respiratory failure-due to underlying severe COPD suspected/suspect acute exacerbation as well.
pCO2 greater than 100
Hypoxemic respiratory failure-currently on 3 L per L
Possible right lower lobe aspiration pneumonia /pneumonitis
New onset heart failure-unknown type proBNP elevated likely due to RV dysfunction/cor pulmonale.
Shortness of breath/lower extremity edema/increased proBNP-6750
Chest x-ray 12/24/2024: showed hyperinflation. No acute infiltrate.
Negative troponin
EKG: Sinus tachycardia. Possible left atrial enlargement.
CT angiogram: No pulmonary embolism. No significant infiltrates.
Uncontrolled hypertension
Lower extremity swelling, mild erythema bilaterally.
Dopplers: No evidence for DVT
Possible COPD: Without exacerbation.
Tobacco abuse
Assessment and plan:
-
Became lethargic, increased work of breathing 12/25/2024.
Found to have severe hypercapnic respiratory failure-requiring emergent BiPAP and transferred to intermediate care unit.
Patient tolerated well-continue BiPAP at the current settings as needed at at bedtime.
Likely would benefit from noninvasive mechanical ventilation at discharge.
ABG this morning 12/26/2024: 7.48/59/80.
Mental status back to baseline
-
Cor pulmonale: Likely patient has chronic hypoxemia and hypercapnia-does not follow-up with doctors.
Echocardiogram noted with RV dysfunction and severe pulmonary hypertension-CT angiogram without pulmonary embolism or infiltrates.
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
Patient does have metabolic alkalosis on BMP.
-
Acute exacerbation of COPD:
Pulmicort/DuoNebs continue while in the hospital. Likely will need to be discharged on long-acting bronchodilators.
Continue IV dexamethasone without change.
Pulmonary follow-up will be required upon discharge.
-
Continue antibiotics for community-acquired infection: Suspect possible aspiration-complete 5 days if clinically improved.
Chest x-ray with right lower lobe infiltrate.
Afebrile without leukocytosis
MRSA screening negative
Not producing sputum
-
Gentle diuresis as able given significant RV dysfunction.
Patient is DNR
Avoid sedatives
High risk situation.
-
Cardiology following the patient as well.
On diuresis
Antihypertensive
-
Patient is a smoker-40+ pack year history of smoking. Ongoing.
Nicotine replacement
-
DVT prophylaxis with Lovenox
-
Pulmonary will continue to follow.
Subjective Data
-
Date of Service:
Date of Service: December 26, 2024
Chief Complaint: Pulmonary Follow Up (Acute hypoxemic respiratory failure)
Subjective:
Clinical improvement
Tolerated BiPAP overnight
More awake today
Continues to have intermittent coughing
Review of Systems
Cardiopulmonary: Dyspnea, Dyspnea on Exertion and Cough
Objective Data
Data Reviewed
Vital Signs / I&O / Oxygen:
Vital Signs
Temp Pulse Resp BP Pulse Ox
98 F 72 18 117/69 95
12/26/24 07:55 12/26/24 11:30 12/26/24 10:44 12/26/24 11:30 12/26/24 10:44
Intake and Output
12/25/24 12/26/24 12/27/24
06:59 06:59 06:59
Intake Total 480 / 480 240 / 240
Output Total 2545 / 2545 800 / 800
Balance -2065 / -2065 -560 / -560
SaO2 95
Nasal Cannula flow liters per 6
minute
Physical Exam
General: Respiratory Distress (At rest)
HEENT: Normocephalic
Cardiovascular: S1-S2 and Regular Rhythm
Respiratory: Crackles (n) and Other (Prolonged expiratory phase)
GI: Soft, Distended (Obese) and Non Tender
Neurology: Awake, Alert and No Motor Deficits
Skin: Warm
Labs/Micro/Reports
Lab Data
12/26/24 04:05
12/26/24 04:05
Laboratory Results
12/25/24 12/25/24 12/25/24
12:35 12:44 14:12
PT 14.7 H
INR 1.10
APTT 31.8
pH 7.23 L 7.26 L
pCO2 > 115 H* 103 H*
pO2 93 62 L
HCO3 48.2 H* 46.2 H*
O2 Delivery Level
12/26/24
04:00
PT
INR
APTT
pH 7.48 H
pCO2 59 H
pO2 80 L
HCO3 43.9 H*
O2 Delivery Level
Microbiology
12/24/24 17:55 Nose MRSA Screen - Final
No Methicillin Resistant Staphylococcus aureus isolated.
--- NOTE | 2024-12-26 12:28 | PTOTSP ---
Speech Therapy Evaluation:
Pt presents with acute risk factors of dysphagia including COPD and acute heart failure. Frequent cough noted outside of PO intake. Oropharyngeal swallow WFL at bedside. No overt s/sx of aspiration. Despite this, risk of aspiration elevated given
tenuous respiratory status. Most recent CXR with RLL PNA, however pt denies previous or current swallow dysfunction or hx of PNAs. WBC slightly decreased at 4.6. Pt afebrile and passed 3oz swallow screen.
Recommend:
1. Continue IDDSI Level 7 (regular solids) and thin liquids
2. Medications as tolerated
3. Strict aspiration precautions
4. D/c oral diet if concerned for aspiration, worsening in respiratory status, or worsening in chest imaging.
5. ASSISTANT DESIGNER to follow to monitor tolerance of diet and determine if pt would benefit from instrumental assessment
--- NOTE | 2024-12-26 14:59 | PN.CDI ---
CDI
- -
CDI:
Physician Documentation Request
Admit Date: 12/24/24 12:24
Dear Doctor Iván,
Patient admitted with acute CHF
12/26 Cardiology note, 'Acute HF....increase to 80mg IV bid now...CHF education....TTE Conclusion ...-Left ventricular ejection fraction is 55-60%.'
Please provide in your note the type of the documented acute CHF:
Acute diastolic CHF
Acute systolic CHF
Other
Use of terms such as suspected, likely, concern for, or probable (associated with a specific diagnosis that is being evaluated, monitored, or treated as if it exists) are acceptable and can be coded in the inpatient setting, when documented at the
time of discharge.
Thank you,
Aiyana JACKSON,RN,CCDS
CDI Specialist
Available via [facility] [employer]
Please use your independent medical judgment in providing your response.
[2024-12-26] MEDS: STERILE WATER FOR INJECTION 20 ML IV (16:56)
[2024-12-26] MEDS: LASIX 80 MG IV (16:57)
[2024-12-26] MEDS: ROCEPHIN 2000 MG IV (16:57)
[2024-12-26] MEDS: LOVENOX 40 MG SC (17:00)
--- NOTE | 2024-12-26 18:30 | PTCARENOTE ---
Overall today, patient had a great day. Spent most of it off BiPAP but did take a nap during the day and wore the BiPAP. Patient was OOB to chair and was able to use the bathroom. Was a little unsteady last night on feet but today had decent
strength.
--- NOTE | 2024-12-26 21:20 | PTCARENOTE ---
Pt received at beginning of shift resting in bed. AAOx3. Denies pain or discomfort. Continues on 4LMF pox 94%. Tachypneic, haddad, diminished, EW noted. Voided 500mls yellow urine in urinal. Bed alarm on and working. Pt attempted to get oob to void
without using call araya after agreeing to use call araya. SR on CM. Rest of VSS. Afebrile. Rest of assessment as documented. Call araya within reach. Will continue to monitor.
[2024-12-26] MEDS: FLUSH (NSS) 2 FLUSH IV (23:13)
[2024-12-27] VITALS (15 sets, daily range): BP systolic 97–136; BP diastolic 51–84; PULSE 2–67; BMI 29.8
[2024-12-27 03:42] LABS: Hematocrit 46.1 % (39.0-52.0); Hemoglobin 14.8 g/dL (13.0-18.0); Mean Corp Hgb Conc. 32.1 g/dL (33.0-37.0); Mean Corpuscular Hgb 30.5 pg (27.0-31.0); Mean Corpuscular Volume 95.1 fL (80.0-94.0); Mean Platelet Volume 8.9 fL (7.4-10.4); Platelet Count 258 10^3/uL (130-400); Red Blood Cell Count 4.85 10^6/uL (4.70-6.10); Red Cell Dist. Width 13.2 % (11.5-14.5); White Blood Cell Count 9.6 10^3/uL (4.8-10.8)
[2024-12-27 04:01] LABS: Blood Urea Nitrogen 37 mg/dl (9-20); Calcium 8.4 mg/dl (8.4-10.2); Carbon Dioxide 39 mmol/L (22-30); Chloride 91 mmol/L (98-107); Estimated Creatinine Clearance 81 ml/min; Glucose 144 mg/dl (70-99); Sodium 132 mmol/L (135-145); eGFR > 60.00
[2024-12-27] MEDS: FLUSH (NSS) 2 FLUSH IV ×2 (05:26→19:39)
[2024-12-27] MEDS: DECADRON 4 MG IV ×3 (05:26→19:39)
[2024-12-27] MEDS: PULMICORT 0.5 MG INH ×2 (07:34→19:40)
[2024-12-27] MEDS: DUONEB 3 ML INH ×4 (07:34→19:40)
[2024-12-27] MEDS: LASIX 80 MG IV ×2 (08:21→15:45)
[2024-12-27] MEDS: ALDACTONE 25 MG PO (08:25)
[2024-12-27] MEDS: COREG 6.25 MG PO ×2 (08:27→19:39)
[2024-12-27] MEDS: DIOVAN 160 MG PO (08:28)
[2024-12-27] MEDS: VIBRAMYCIN 100 MG PO ×2 (08:29→19:39)
--- NOTE | 2024-12-27 14:29 | W.PN.PUL3 ---
Today's Communication / Plan
-
- Lowered dexamethasone to 4 mg IV every 12 hours
- Follow-up BMP in a.m., likely switch to oral diuretics in 24 hours
Assessment
-
74-year-old man without significant past medical history, does not take any medication. Come to the hospital complaining of 1 week of exertional shortness of breath. Also lower extremity edema. Chest x-ray showed hyperinflation. We were
consulted evaluation of possible COPD on 12/24/2024.
Acutely transferred to IMU 12/25/2024 for change in mental status and likely hypercapnia.
Exertional dyspnea:
Acute on chronic hypercapnic respiratory failure-due to underlying severe COPD suspected/suspect acute exacerbation as well.
pCO2 greater than 100
Hypoxemic respiratory failure-currently on 3 L per L
Possible right lower lobe aspiration pneumonia /pneumonitis
New onset heart failure-unknown type proBNP elevated likely due to RV dysfunction/cor pulmonale.
Shortness of breath/lower extremity edema/increased proBNP-6750
Chest x-ray 12/24/2024: showed hyperinflation. No acute infiltrate.
Negative troponin
EKG: Sinus tachycardia. Possible left atrial enlargement.
CT angiogram: No pulmonary embolism. No significant infiltrates.
Uncontrolled hypertension
Lower extremity swelling, mild erythema bilaterally.
Dopplers: No evidence for DVT
Possible COPD: Without exacerbation.
Tobacco abuse
Assessment and plan:
-
Became lethargic, increased work of breathing 12/25/2024.
Found to have severe hypercapnic respiratory failure-requiring emergent BiPAP and transferred to intermediate care unit.
Patient tolerated well-continue BiPAP at the current settings as needed at at bedtime.
Likely would benefit from noninvasive mechanical ventilation at discharge.
ABG continues to show improving hypercapnia
Mental status back to baseline
-
Cor pulmonale: Likely patient has chronic hypoxemia and hypercapnia-does not follow-up with doctors.
Echocardiogram noted with RV dysfunction and severe pulmonary hypertension-CT angiogram without pulmonary embolism or infiltrates.
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
Patient does have metabolic alkalosis on BMP.
-
Acute exacerbation of COPD:
Pulmicort/DuoNebs continue while in the hospital. Likely will need to be discharged on long-acting bronchodilators.
Continue IV dexamethasone, changed frequency to every 12 hours
Pulmonary follow-up will be required upon discharge.
-
Continue antibiotics for community-acquired infection: Suspect possible aspiration-complete 5 days if clinically improved.
Chest x-ray with right lower lobe infiltrate.
Afebrile without leukocytosis
MRSA screening negative
Not producing sputum
-
Gentle diuresis as able given significant RV dysfunction.
Patient is DNR
Avoid sedatives
High risk situation.
-
Cardiology following the patient as well.
On diuresis
Antihypertensive
-
Patient is a smoker-40+ pack year history of smoking. Ongoing.
Nicotine replacement
-
DVT prophylaxis with Lovenox
-
Pulmonary will continue to follow.
Subjective Data
-
Date of Service:
Date of Service: December 27, 2024
Chief Complaint: Pulmonary Follow Up (Acute hypoxemic respiratory failure)
Subjective:
Comfortable lying in bed, significantly improved from pulmonary standpoint
Review of Systems
Genitourinary: Other (All 14 systems reviewed and negative except as stated above in the history of present illness.)
Objective Data
Data Reviewed
Vital Signs / I&O / Oxygen:
Vital Signs
Temp Pulse Resp BP Pulse Ox
97.7 F 71 26 136/84 97
12/27/24 13:01 12/27/24 11:23 12/27/24 11:23 12/27/24 08:28 12/27/24 11:23
Intake and Output
12/26/24 12/27/24 12/28/24
06:59 06:59 06:59
Intake Total 240 / 240 1400 / 1400 480 / 480
Output Total 800 / 800 2250 / 2250 1350 / 1350
Balance -560 / -560 -850 / -850 -870 / -870
SaO2 97
Nasal Cannula flow liters per 6
minute
Physical Exam
General: Respiratory Distress (At rest)
HEENT: Normocephalic
Cardiovascular: S1-S2, Regular Rhythm and Peripheral Edema (1+ pedal edema bilaterally)
Respiratory: Crackles (n) and Other (Prolonged expiratory phase)
GI: Soft, Distended (Obese) and Non Tender
Neurology: Awake, Alert and No Motor Deficits
Skin: Warm
Labs/Micro/Reports
Lab Data
12/27/24 03:16
12/27/24 03:16
Microbiology
12/24/24 17:55 Nose MRSA Screen - Final
No Methicillin Resistant Staphylococcus aureus isolated.
--- NOTE | 2024-12-27 15:39 | W.PN.CD ---
Addendum entered and electronically signed by Glen Soliz MD 12/27/24 16:57:
Patient seen and examined in collaboration with PGY 2 Resident; agree with below.
- Patient looks clinically better today; shortness of breath significantly improved.
- Physical examination: Regular rate and rhythm, no significant murmur, rubs, or gallops; clear to auscultation bilaterally; trace edema.
- LVEF 55-60%; cor pulmonale on echo.
- Volume status improved.
- Will decrease Lasix to 80 mg IV once daily.
- Blood pressure now controlled; continue current doses of valsartan, carvedilol, and spironolactone.
- Continue antibiotics as per primary team for pneumonia.
Original Note:
Documented by User: Ismael Hill MD, Resident 12/27/24 15:45
Today's Communication / Plan
-
* Continue IV diuresis today; reassess tomorrow
Impression / Plan
-
Acute hypercarbic respiratory failure
-Possible aspiration event? Also suspected underlying severe COPD
-improved with BIPAP; now on 4L via NC
Acute HF, Cor Pulmonale with RV failure
-Continue furosemide 80mg IV bid
-CHF education
-given cor pulmonale MRA started first
Hypertension, severely elevated in ER:
-continue arb, bb and lasix
-Added mra, will increased to 25mg daily
Severe Pulmonary HTN:
-multifactorial HTN/DD, COPD
-very poor prognosis
Tobacco abuse:
-recommended total cessation
-pulmonary consulted for suspected COPD (which is contributing to SOB)
LE edema:
-monitor with diuresis
-RLE is red and warm- u/s negative. Will check d-dimer. Denies fever or chills. W/u per primary team.
Physical Exam
Vital Signs/Labs
Vital Signs
Temp Pulse Resp BP Pulse Ox
97.7 F 71 20 136/84 97
12/27/24 13:01 12/27/24 15:20 12/27/24 15:20 12/27/24 08:28 12/27/24 15:20
12/26/24 12/27/24 12/28/24
06:59 06:59 06:59
Actual Weight 98.8 kg 99.507 kg
12/27/24 03:16
12/27/24 03:16
PT 14.7 Sec (11.4-14.6) H 12/25/24 12:35
INR 1.10 12/25/24 12:35
APTT 31.8 Sec (23.4-35.0) 12/25/24 12:35
Magnesium 1.8 mg/dl (1.6-2.3) 12/26/24 04:05
Triglycerides 88 mg/dl (10-149) 12/25/24 05:46
LDL Cholesterol, Calc 122 mg/dl 12/25/24 05:46
VLDL Cholesterol, Calc 17 mg/dl (0-30) 12/25/24 05:46
HDL Cholesterol 46 mg/dl 12/25/24 05:46
12/24/24
08:41
Ohi-H-Mydmqpdaddt Pept 6750
LAB Results
12/24/24 12/25/24 12/25/24
19:59 01:40 07:40
Troponin I 0.025 Cancelled Cancelled
12/25/24
12:35
Troponin I 0.032
Physical Exam
Constitutional: No acute distress
EENT: Anicteric
Cardiovascular: Rhythm & rate is regular, Pedal edema present (trace BL LE), JVD present (V wave) and S1S2 is normal
Respiratory: Respiratory effort normal and Crackles Present (right base)
Neuro/Psych: AO x 3
Data Reviewed
-
Date of Service: December 27, 2024

Documented by User: Glen Soliz MD 12/27/24 16:54
Data Reviewed
-
EKG: Tracing Personally Visualized and interpreted (Telemetry: Sinus rhythm)
Echo: Tracing Personally Visualized and interpreted (LVEF 55-60%; enlarged right ventricular size, reduced right ventricular systolic function; mild to moderate tricuspid regurgitation, estimated PAP 80-85 mmHg.)
Labs: Labs Reviewed by me
[2024-12-27] MEDS: ROCEPHIN 2000 MG IV (15:44)
[2024-12-27] MEDS: STERILE WATER FOR INJECTION 20 ML IV (15:44)
--- NOTE | 2024-12-27 15:57 | W.PN.HOSP.TC ---
Today's Communication/Plan
-
Decrease frequency of steroids
Continue antibiotics
Continue BiPAP
Continue IV diuresis
Assessment / Plan
Assessment / Plan
Physical Exam
General: No Apparent Distress, Comfortable and Conversant
HEENT: Normocephalic, Moist mucous membranes and Atraumatic
Respiratory: Decreased Breath Sounds bilaterally
Cardiac: S1/S2 and Regular Rhythm
GI: Soft, Non Tender and Normal Bowel Sounds
Musculoskeletal: No Cyanosis, Edema, Left Lower Extremity and Edema, Right Lower Extremity
Skin: Warm and Dry
Neuro: Lethargic
Assessment Plan
Lethargy and Vomiting on 12/25/24
Acute Hypoxic and Hypercapnic Respiratory Failure
-Rapid Response was called on 12/25/24; I was present for the rapid response; BiPAP ordered, patient started vomiting so BiPAP had to be held, but BiPAP was later able to be resumed
-Patient appeared to have coughed up mucus and then gagged on the mucus
-ABG revealed significant hypercapnia -- improved with BiPAP
-Continue BiPAP (since patient is DNI, there is no other option other than BiPAP for his hypercapnia)
-Continue IV steroids -- decrease frequency to Q12H
-Duonebs and Pulmicort
-Previously CT Chest was negative for PE
-Consulted pulmonary given suspected undiagnosed COPD in the setting of hypoxia and suspected new CHF
-Today patient remains alert. Remains on 4 L NC oxygen.
Suspected RLL Pneumonia on CXR
-Continue antibiotics as below
Presentation with Bilateral Lower Extremity Swelling and Shortness of Breath Suspected Secondary to Congestive Heart Failure
Significantly High ProBNP
Suspected Acute Heart Failure Diastolic
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
Severe Pulmonary Hypertension
-Echocardiogram noted with RV dysfunction and severe pulmonary hypertension-CT angiogram without pulmonary embolism or infiltrates.
-Increase IV Lasix from 40 mg BID to 80 mg BID on 12/26/24 -- continue Lasix IV 80 mg BID
-Aldactone added but patient currently unable to tolerate PO meds
-Will need guideline directed medical therapy: MRA started given cor pulmonale
-Daily weights
-I's and O's
-Consulted cardiology
Right Lower Extremity Cellulitis
-Continue Cephalosporin and Doxycycline as for the pneumonia above, patient's cellulitis is improving
-MRSA negative
Hypertensive Urgency
-Nitropaste given in the ER with some improvement
-Optimizing antihypertensive regimen/GDMT
-Low sodium diet
Chronic Tobacco Use
DVT Prophylaxis: Lovenox
Code Status: DNR and DNI (at the time of admission, patient had full-decision making capacity and he confirmed that he is a DNR and DNI and he fully understood what DNR and DNI meant)
Anticipated Discharge: > 48 hours
Subjective/Interval History
-
Date of Service: December 27, 2024
Patient was seen and examined. He denied any chest pain, SOB or any other complaints.
Objective Data
-
Labs:
Laboratory Results
12/27/24
03:16
Sodium 132 L
Potassium 5.0
Chloride 91 L
Carbon Dioxide 39 H
BUN 37 H
Creatinine 0.9
Glucose 144 H
Calcium 8.4
Vital Signs:
Vital Signs
Temp Pulse Resp BP Pulse Ox
97.7 F 71 20 136/84 97
12/27/24 13:01 12/27/24 15:20 12/27/24 15:20 12/27/24 08:28 12/27/24 15:20
I&O
12/26/24 12/27/24 12/28/24
06:59 06:59 06:59
Intake Total 240 / 240 1400 / 1400 480 / 480
Output Total 800 / 800 2250 / 2250 1850 / 1850
Balance -560 / -560 -850 / -850 -1370 / -1370
[2024-12-27] MEDS: LOVENOX 40 MG SC (18:00)
--- NOTE | 2024-12-27 18:06 | PTCARENOTE ---
Assumed care of Pt at shift change; Resting comfortably in bed - no issues throughout shift; AAO x 3; Remains on 4L O2 with SpO2 ~ 95%; Rings appropriately; Will continue to monitor and assess.
--- NOTE | 2024-12-27 23:45 | PTCARENOTE ---
Pt received at beginning of shift sleeping in bed. More drowsy this evening. Pt denied he wore his BIPAP for entire previous night. RT and this RN assured pt he did and did very well wearing it. Pt finally remembered wearing BIPAP. VSS. Afebrile.
SB/SR on CM. POX on 4L 94%. Currently wearing BIPAP POX 96%. Rest of assessment as documented. Turns self in bed. Bed alarm remains on and working. Call araya within reach. Will continue to monitor.
[2024-12-28] VITALS (14 sets, daily range): BP systolic 108–159; BP diastolic 51–115; PULSE 2–64; BMI 28.5
[2024-12-28 03:44] LABS: Hematocrit 44.5 % (39.0-52.0); Hemoglobin 14.8 g/dL (13.0-18.0); Mean Corp Hgb Conc. 33.3 g/dL (33.0-37.0); Mean Corpuscular Hgb 30.8 pg (27.0-31.0); Mean Corpuscular Volume 92.7 fL (80.0-94.0); Mean Platelet Volume 8.4 fL (7.4-10.4); Platelet Count 261 10^3/uL (130-400); Red Cell Dist. Width 13.3 % (11.5-14.5); White Blood Cell Count 10.2 10^3/uL (4.8-10.8)
[2024-12-28 04:12] LABS: Blood Urea Nitrogen 45 mg/dl (9-20); Calcium 8.3 mg/dl (8.4-10.2); Carbon Dioxide 39 mmol/L (22-30); Chloride 90 mmol/L (98-107); Estimated Creatinine Clearance 81 ml/min; Glucose 141 mg/dl (70-99); Potassium 4.8 mmol/L (3.5-5.1); Sodium 130 mmol/L (135-145); eGFR > 60.00
[2024-12-28] MEDS: PULMICORT 0.5 MG INH ×2 (07:30→20:15)
[2024-12-28] MEDS: DUONEB 3 ML INH ×4 (07:30→20:15)
[2024-12-28] MEDS: LASIX 80 MG IV (08:29)
[2024-12-28] MEDS: DECADRON 4 MG IV (08:31)
[2024-12-28] MEDS: ALDACTONE 25 MG PO (08:31)
[2024-12-28] MEDS: DIOVAN 160 MG PO (08:31)
[2024-12-28] MEDS: VIBRAMYCIN 100 MG PO ×2 (08:31→20:08)
[2024-12-28] MEDS: COREG 6.25 MG PO ×2 (08:31→20:08)
--- NOTE | 2024-12-28 10:44 | W.PN.PUL3 ---
Today's Communication / Plan
-
- Continue DuoNeb, budesonide and nightly BiPAP
- DC IV dexamethasone, start prednisone 30 mg daily for 3 more days and then discontinue
- 5 to 7 days of antibiotics should suffice
- Diuresis management per cardiology service
- Outpatient follow-up with pulmonary clinic
Assessment
-
74-year-old man without significant past medical history, does not take any medication. Come to the hospital complaining of 1 week of exertional shortness of breath. Also lower extremity edema. Chest x-ray showed hyperinflation. We were
consulted evaluation of possible COPD on 12/24/2024.
Acutely transferred to IMU 12/25/2024 for change in mental status and likely hypercapnia.
Exertional dyspnea:
Acute on chronic hypercapnic respiratory failure-due to underlying severe COPD suspected/suspect acute exacerbation as well.
pCO2 greater than 100
Hypoxemic respiratory failure-currently on 3 L per L
Possible right lower lobe aspiration pneumonia /pneumonitis
New onset heart failure-unknown type proBNP elevated likely due to RV dysfunction/cor pulmonale.
Shortness of breath/lower extremity edema/increased proBNP-6750
Chest x-ray 12/24/2024: showed hyperinflation. No acute infiltrate.
Negative troponin
EKG: Sinus tachycardia. Possible left atrial enlargement.
CT angiogram: No pulmonary embolism. No significant infiltrates.
Uncontrolled hypertension
Lower extremity swelling, mild erythema bilaterally.
Dopplers: No evidence for DVT
Possible COPD: Without exacerbation.
Tobacco abuse
Assessment and plan:
-
Became lethargic, increased work of breathing 12/25/2024.
Found to have severe hypercapnic respiratory failure-requiring emergent BiPAP and transferred to intermediate care unit.
Patient tolerated well-continue BiPAP at the current settings as needed at at bedtime.
Likely would benefit from noninvasive mechanical ventilation at discharge.
ABG continues to show improving hypercapnia
Mental status back to baseline
-
Cor pulmonale: Likely patient has chronic hypoxemia and hypercapnia-does not follow-up with doctors.
Echocardiogram noted with RV dysfunction and severe pulmonary hypertension-CT angiogram without pulmonary embolism or infiltrates.
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
Patient does have metabolic alkalosis on BMP.
-
Acute exacerbation of COPD:
Pulmicort/DuoNebs continue while in the hospital. Likely will need to be discharged on long-acting bronchodilators.
DC IV steroids, switch to prednisone 30 mg daily for 3 more days and discontinue
Pulmonary follow-up will be required upon discharge.
-
Continue antibiotics for community-acquired infection: Suspect possible aspiration-complete 5 days if clinically improved.
Chest x-ray with right lower lobe infiltrate.
Afebrile without leukocytosis
MRSA screening negative
Not producing sputum
-
Gentle diuresis as able given significant RV dysfunction.
Patient is DNR
Avoid sedatives
High risk situation.
-
Cardiology following the patient as well.
On diuresis
Antihypertensive
-
Patient is a smoker-40+ pack year history of smoking. Ongoing.
Nicotine replacement
-
DVT prophylaxis with Lovenox
-
Pulmonary will continue to follow.
Subjective Data
-
Date of Service:
Date of Service: December 28, 2024
Chief Complaint: Pulmonary Follow Up (Acute hypoxemic respiratory failure)
Subjective:
Patient comfortably sitting in bed, overall feels much better. No cough, wheezing.
Review of Systems
Genitourinary: Other (No new symptoms reported.)
Objective Data
Data Reviewed
Vital Signs / I&O / Oxygen:
Vital Signs
Temp Pulse Resp BP Pulse Ox
97.6 F 76 24 158/86 94
12/28/24 08:07 12/28/24 08:31 12/28/24 07:35 12/28/24 08:31 12/28/24 07:35
Intake and Output
12/27/24 12/28/24 12/29/24
06:59 06:59 06:59
Intake Total 1400 / 1400 720 / 720
Output Total 2250 / 2250 3425 / 3425 700 / 700
Balance -850 / -850 -2705 / -2705 -700 / -700
SaO2 94
Nasal Cannula flow liters per 4
minute
Physical Exam
General: Respiratory Distress (At rest)
HEENT: Normocephalic
Cardiovascular: S1-S2, Regular Rhythm and Peripheral Edema (1+ pedal edema bilaterally overall improving)
Respiratory: Crackles (None, wheezing resolved) and Other (Prolonged expiratory phase)
GI: Soft, Distended (Obese) and Non Tender
Neurology: Awake, Alert and No Motor Deficits
Skin: Warm
Labs/Micro/Reports
Lab Data
12/28/24 03:24
12/28/24 03:24
Microbiology
12/24/24 17:55 Nose MRSA Screen - Final
No Methicillin Resistant Staphylococcus aureus isolated.
--- NOTE | 2024-12-28 13:03 | W.PN.HOSP.TC ---
Addendum entered and electronically signed by Ronnell Christina MD 12/30/24 22:06:
Concern for Pneumonia was present on admission
Addendum entered and electronically signed by Ronnell Christina MD 12/28/24 18:17:
I just called patient's sister Jacqueline (she requested update from patient's physician), and I answered all her questions and concerns to satisfaction.
Original Note:
Today's Communication/Plan
-
Continue steroids, bronchodilators, antibiotics
Continue BiPAP -- very important
Continue IV Lasix, appreciate cardiology and pulmonary
Assessment / Plan
Assessment / Plan
Physical Exam
General: No Apparent Distress, Comfortable and Conversant
HEENT: Normocephalic, Moist mucous membranes and Atraumatic
Respiratory: Decreased Breath Sounds bilaterally
Cardiac: S1/S2 and Regular Rhythm
GI: Soft, Non Tender and Normal Bowel Sounds
Musculoskeletal: No Cyanosis, Edema, Left Lower Extremity and Edema, Right Lower Extremity
Skin: Warm and Dry
Neuro: Lethargic
Assessment Plan
Lethargy and Vomiting on 12/25/24
Acute Hypoxic and Hypercapnic Respiratory Failure
-Rapid Response was called on 12/25/24; I was present for the rapid response; BiPAP ordered, patient started vomiting so BiPAP had to be held, but BiPAP was later able to be resumed
-Patient appeared to have coughed up mucus and then gagged on the mucus
-ABG revealed significant hypercapnia -- improved with BiPAP
-Continue BiPAP (since patient is DNI, there is no other option other than BiPAP for his hypercapnia)
-Continue IV steroids for today -- starting tomorrow, ORAL steroids
-Duonebs and Pulmicort
-Continue IV Lasix for CHF as below
-Previously CT Chest was negative for PE
-Consulted pulmonary given suspected undiagnosed COPD in the setting of hypoxia and suspected new CHF
-Pulmicort/DuoNebs continue while in the hospital. Likely will need to be discharged on long-acting bronchodilators.
-Today patient remains alert. Remains on 4 L NC oxygen.
Suspected RLL Pneumonia on CXR
-Continue antibiotics as below
Presentation with Bilateral Lower Extremity Swelling and Shortness of Breath Suspected Secondary to Congestive Heart Failure
Significantly High ProBNP
Suspected Acute Heart Failure Diastolic
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
Severe Pulmonary Hypertension
-Echocardiogram noted with RV dysfunction and severe pulmonary hypertension-CT angiogram without pulmonary embolism or infiltrates.
-Continue IV Lasix
-Aldactone added but patient currently unable to tolerate PO meds
-Will need guideline directed medical therapy: MRA started given cor pulmonale
-Daily weights
-I's and O's
-Consulted cardiology
Right Lower Extremity Cellulitis
-Continue Cephalosporin and Doxycycline as for the pneumonia above, patient's cellulitis has improved significantly
-MRSA negative
Hypertensive Urgency
-Nitropaste given in the ER with some improvement
-Optimizing antihypertensive regimen/GDMT
-Low sodium diet
Chronic Tobacco Use
DVT Prophylaxis: Lovenox
Code Status: DNR and DNI (at the time of admission, patient had full-decision making capacity and he confirmed that he is a DNR and DNI and he fully understood what DNR and DNI meant)
Anticipated Discharge: 24 - 48 hours
Subjective/Interval History
-
Date of Service: December 28, 2024
Patient was seen and examined. He denied any chest pain or shortness of breath.
Objective Data
-
Labs:
Laboratory Results
12/28/24
03:24
WBC 10.2
Hgb 14.8
Hct 44.5
Plt Count 261
Sodium 130 L
Potassium 4.8
Chloride 90 L
Carbon Dioxide 39 H
BUN 45 H
Creatinine 0.9
Glucose 141 H
Calcium 8.3 L
Vital Signs:
Vital Signs
Temp Pulse Resp BP Pulse Ox
97.7 F 65 22 158/86 93
12/28/24 10:00 12/28/24 11:18 12/28/24 11:18 12/28/24 08:31 12/28/24 12:24
I&O
12/27/24 12/28/24 12/29/24
06:59 06:59 06:59
Intake Total 1400 / 1400 720 / 720 480 / 480
Output Total 2250 / 2250 3425 / 3425 1450 / 1450
Balance -850 / -850 -2705 / -2705 -970 / -970
--- NOTE | 2024-12-28 14:11 | W.PN.CD ---
Addendum entered and electronically signed by Glen Soliz MD 12/28/24 16:43:
Patient seen and examined in collaboration with PGY 2 resident; agree with below.
- No major events overnight; no cardiac complaints today.
- Sinus rhythm on telemetry.
- Exam: Heart regular rate and rhythm, normal S1-S2, no murmur/rub/gallop; lungs clear to auscultation bilaterally; trivial edema.
- Cor pulmonale: Will transition to Lasix 40 mg PO daily, which should be home regimen.
- Patient likely has undiagnosed CHELSIE as well.
- Continue current antihypertensive medication regimen.
- Patient can follow-up with Cardiology as an outpatient; no further recommendations at this time.
Original Note:
Documented by User: Ismael Hill MD, Resident 12/28/24 15:45
Today's Communication / Plan
-
* Daily weights on standing scale.
* Wean O2 to aim for 88-92%.
* Transition to furosemide 40 mg once a day from tomorrow
Impression / Plan
-
Acute hypercarbic respiratory failure
Severe COPD
-Possible aspiration event? Now resolved.
-improved with BIPAP; now on 1L via NC
-Wean O2 to keep between 88-92%
Acute HF, Cor Pulmonale with RV failure
-BUN continues to rise, now 45 today
-Transition to 40 mg PO once a day
-CHF education
-given cor pulmonale MRA started first
-Daily weights on standing scale only.
Hypertension, severely elevated in ER:
-continue arb, bb and lasix
-Added mra, will increased to 25mg daily
Severe Pulmonary HTN, possibly type III
-multifactorial HTN/DD, COPD
-very poor prognosis
Tobacco abuse:
-recommended total cessation
-pulmonary consulted for suspected COPD (which is contributing to SOB)
LE edema:
-monitor with diuresis
-RLE is red and warm- u/s negative. Will check d-dimer. Denies fever or chills. W/u per primary team.
Physical Exam
Vital Signs/Labs
Vital Signs
Temp Pulse Resp BP Pulse Ox
97.7 F 65 22 158/86 93
12/28/24 10:00 12/28/24 11:18 12/28/24 11:18 12/28/24 08:31 12/28/24 12:24
12/27/24 12/28/24 12/29/24
06:59 06:59 06:59
Actual Weight 99.507 kg 95.3 kg
12/28/24 03:24
12/28/24 03:24
PT 14.7 Sec (11.4-14.6) H 12/25/24 12:35
INR 1.10 12/25/24 12:35
APTT 31.8 Sec (23.4-35.0) 12/25/24 12:35
Magnesium 1.8 mg/dl (1.6-2.3) 12/26/24 04:05
Triglycerides 88 mg/dl (10-149) 12/25/24 05:46
LDL Cholesterol, Calc 122 mg/dl 12/25/24 05:46
VLDL Cholesterol, Calc 17 mg/dl (0-30) 12/25/24 05:46
HDL Cholesterol 46 mg/dl 12/25/24 05:46
12/24/24
08:41
Mif-Y-Vwzomufasvx Pept 6750
Physical Exam
Constitutional: No acute distress
EENT: Anicteric
Cardiovascular: Rhythm & rate is regular, Pedal edema present (trace BL LE) and S1S2 is normal
Respiratory: Respiratory effort normal and Crackles Present (right base)
Neuro/Psych: AO x 3
Data Reviewed
-
Date of Service: December 28, 2024

Documented by User: Glen Soliz MD 12/28/24 16:38
Data Reviewed
-
EKG: Tracing Personally Visualized and interpreted (Telemetry: Sinus rhythm)
[2024-12-28] MEDS: STERILE WATER FOR INJECTION 20 ML IV (16:12)
[2024-12-28] MEDS: ROCEPHIN 2000 MG IV (16:12)
[2024-12-28] MEDS: LOVENOX 40 MG SC (17:19)
--- NOTE | 2024-12-28 18:25 | PTCARENOTE ---
Assumed care of pt at shift change; Resting comfortably in bed with BIPAP on; Continuing to wean O2; Pt weaned to RA, however would desat with exertion, O2 resumed at 1-2L to keep SpO2 > 90. Will continue to monitor and assess.
[2024-12-29] VITALS: BP 130/81
[2024-12-29 02:00] VITALS: BP 139/85
[2024-12-29 03:48] VITALS: PULSE 2; PULSE 67
[2024-12-29 04:00] VITALS: BP 120/79
[2024-12-29 04:46] LABS: Hematocrit 47.1 % (39.0-52.0); Hemoglobin 15.2 g/dL (13.0-18.0); Mean Corp Hgb Conc. 32.3 g/dL (33.0-37.0); Mean Corpuscular Hgb 30.4 pg (27.0-31.0); Mean Corpuscular Volume 94.2 fL (80.0-94.0); Mean Platelet Volume 8.9 fL (7.4-10.4); Platelet Count 270 10^3/uL (130-400); Red Cell Dist. Width 13.6 % (11.5-14.5); White Blood Cell Count 10.3 10^3/uL (4.8-10.8)
[2024-12-29 05:04] LABS: Blood Urea Nitrogen 45 mg/dl (9-20); Calcium 8.7 mg/dl (8.4-10.2); Chloride 89 mmol/L (98-107); Estimated Creatinine Clearance 73 ml/min; Glucose 107 mg/dl (70-99); Potassium 4.7 mmol/L (3.5-5.1); Sodium 133 mmol/L (135-145); eGFR > 60.00
[2024-12-29 05:15] LABS: Carbon Dioxide 44 mmol/L (22-30)
[2024-12-29 06:00] VITALS: BP 152/90; BMI 28.5
--- NOTE | 2024-12-29 06:30 | PTCARENOTE ---
No acute events. Patient wore bipap overnight. 2 liters placed this am.
[2024-12-29] MEDS: DUONEB 3 ML INH ×2 (07:35→11:17)
[2024-12-29] MEDS: PULMICORT 0.5 MG INH (07:35)
[2024-12-29] MEDS: DIOVAN 160 MG PO (08:29)
[2024-12-29] MEDS: VIBRAMYCIN 100 MG PO (08:29)
[2024-12-29] MEDS: LASIX 40 MG PO (08:30)
[2024-12-29] MEDS: COREG 6.25 MG PO (08:30)
[2024-12-29] MEDS: ALDACTONE 25 MG PO (08:30)
[2024-12-29] MEDS: DELTASONE 30 MG PO (08:30)
--- NOTE | 2024-12-29 08:45 | PTCARENOTE ---
Patient received from plant operator/shift supervisor. Patient resting comfortably in bed. AAO, VSS. No events noted overnight. No complaints of pain. No fluids via IV. Patient was on BiPAP overnight. Currently on 2L, will wean. PT to see patient. No tests
scheduled at this time. Discharge today. Call araya in reach.
--- NOTE | 2024-12-29 09:06 | W.PN.HOSP.TC ---
Addendum entered and electronically signed by Hector Barry DO 12/29/24 12:54:
Patient is in need of oxygen at 2 liters/minute via nasal cannula continuously due to pulse oximetry of 86% on room air at rest. Oxygen will help to improve hypoxemia. Patient is mobile within the home. DuoNeb therapy has been tried and is
ineffective in treating hypoxemia related symptoms. Oxygen is needed to improve symptoms.
Addendum entered and electronically signed by Hector Barry DO 12/29/24 09:25:
[place] text sent to case management to arrange for home BiPAP. Home nebulizer.
Original Note:
Today's Communication/Plan
-
Ambulatory pulse ox on room air
Discharge
Assessment / Plan
Assessment / Plan
Gen-AAOx3, NAD
HEENT-NC, AT, anicteric, clear oral mm
Neck-supple
CV-reg, no M, +S1/S2
Lungs-clear B/L
Abd-soft, NT, ND
Ext-no edema
Musculoskeletal-no cyanosis, clubbing
Skin-warm and dry
Neuro-grossly non-focal
Psych-calm, cooperative
Acute Hypoxic and Hypercapnic Respiratory Failure -due to acute heart failure and COPD exacerbation. Possible community-acquired pneumonia. Still on 2 L, wean down as able. Check ambulatory pulse ox on room air prior to discharge.
-Rapid Response was called on 12/25/24; Dr. Jacobo was present for the rapid response; BiPAP ordered, patient started vomiting so BiPAP had to be held, but BiPAP was later able to be resumed
-Patient appeared to have coughed up mucus and then gagged on the mucus
-ABG revealed significant hypercapnia -- improved with BiPAP
-Continue BiPAP (since patient is DNI, there is no other option other than BiPAP for his hypercapnia)
-Continue IV steroids for today -- starting tomorrow, ORAL steroids
-Duonebs and Pulmicort
-Continue IV Lasix for CHF as below
-Previously CT Chest was negative for PE
-Consulted pulmonary given suspected undiagnosed COPD in the setting of hypoxia and suspected new CHF
-Pulmicort/DuoNebs continue while in the hospital. Likely will need to be discharged on long-acting bronchodilators.
-Today patient remains alert. Remains on 4 L NC oxygen.
Suspected RLL CAP pneumonia on CXR -presentation with productive cough for several weeks. No signs or symptoms of sepsis.
-Continue antibiotics as below
Acute heart failure with preserved EF -improved. Lasix transition to oral. Outpatient follow-up with cardiology.
-Echocardiogram noted with RV dysfunction and severe pulmonary hypertension-CT angiogram without pulmonary embolism or infiltrates.
-Continue IV Lasix
-Aldactone added but patient currently unable to tolerate PO meds
-Will need guideline directed medical therapy: MRA started given cor pulmonale
-Daily weights
-I's and O's
-Consulted cardiology
Acute COPD exacerbation -new diagnosis of COPD. Does not have a PCP. Recommend outpatient follow-up.
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
Severe Pulmonary Hypertension
Right Lower Extremity Cellulitis-improved.
-Continue Cephalosporin and Doxycycline as for the pneumonia above, patient's cellulitis has improved significantly
-MRSA negative
Essential hypertension with hypertensive Urgency -not on meds prior to admission.
Blood pressure much improved. Continue carvedilol, spironolactone, valsartan.
Hyponatremia -133. Monitor for now.
Impaired fasting glucose -hemoglobin A1c 5.8%. Weight loss is the ordoñez.
Chronic Tobacco Use
DNR
Dispo - anticipate discharge this afternoon. Close outpatient follow-up with PCP, cardiology, pulmonary. Discussed with patient and nursing.
33 minutes spent in discharge process.
Left a voicemail to update patient's [id number] Jacqueline on the phone.
Anticipated Discharge: Today
Subjective/Interval History
-
Date of Service: December 29, 2024
Patient seen and examined. No complaints.
Objective Data
-
Labs:
Laboratory Results
12/29/24
04:31
WBC 10.3
Hgb 15.2
Hct 47.1
Plt Count 270
Sodium 133 L
Potassium 4.7
Chloride 89 L
Carbon Dioxide 44 H
BUN 45 H
Creatinine 1.0
Glucose 107 H
Calcium 8.7
Vital Signs:
Vital Signs
Temp Pulse Resp BP Pulse Ox
97.6 F 75 16 153/82 93
12/29/24 03:06 12/29/24 08:29 12/29/24 07:37 12/29/24 08:29 12/29/24 07:37
I&O
12/28/24 12/29/24 12/30/24
06:59 06:59 06:59
Intake Total 720 / 720 720 / 720
Output Total 3425 / 3425 2600 / 2600
Balance -2705 / -2705 -1880 / -1880
Review of Systems
-
History Source: Patient
All other systems: Reviewed and negative
--- NOTE | 2024-12-29 09:25 | W.DS.TRANS ---
DC Summary - [employer] Assistant
-
Discharge Instructions:
Discharge Diagnosis/Procedures Acute COPD exacerbation, acute heart failure
exacerbation, pneumonia
Diet 2 Gram Sodium,Restrict fluids to 48 oz
Activity As tolerated
Driving Restrictions As prior to admission
Bathing Restrictions None
Instructions:
Stand-Alone Forms:
Changes to Home Medications: No
Discharge Medications:
DC Medications w/original date entered in [facility]
budesonide 0.5 mg/2 mL suspension for nebulization 0.5 mg (2 mL) inhalation R BID #60 mL 12/29/24
carvedilol 6.25 mg tablet 6.25 mg PO BID #60 tabs 12/29/24
cefpodoxime 200 mg tablet 200 mg PO BID #4 tabs 12/29/24
doxycycline hyclate 100 mg capsule 100 mg PO Q12 #6 caps 12/29/24
furosemide 40 mg tablet 40 mg PO DAILY #30 tabs 12/29/24
ipratropium 0.5 mg-albuterol 3 mg (2.5 mg base)/3 mL nebulization soln 3 ml inhalation Q4H PRN shortness of breath or wheezing #90 mL 12/29/24
prednisone 10 mg tablet 30 mg (3 x 10 mg) PO DAILY #6 tabs 12/29/24
spironolactone 25 mg tablet 25 mg PO DAILY #30 tabs 12/29/24
valsartan 160 mg tablet 160 mg PO DAILY #30 tabs 12/29/24
Home Medication Changes
Pending Results: No
--- NOTE | 2024-12-29 09:39 | W.PN.PUL3 ---
Addendum entered and electronically signed by Daniella Vera, DO 12/29/24 14:55:
[facility] has denied NIV set up for unclear reasons, despite urgent need and CO2 levels
We will arrange OP sleep study and set up
Discussed with team
Addendum entered and electronically signed by Daniella Vera, DO 12/29/24 12:16:
Total time spent 41 mins
Original Note:
Today's Communication / Plan
-
Stable on RA, no new complaints
Home set up for NIV, will arrange
We discussed importance of OP pulm FU for management of COPD/NIV and hypercapnia, he voiced understanding
Contact left in chart
Discharge planning per team
Assessment
-
74-year-old man without significant past medical history, does not take any medication. Come to the hospital complaining of 1 week of exertional shortness of breath. Also lower extremity edema. Chest x-ray showed hyperinflation. We were
consulted evaluation of possible COPD on 12/24/2024. Acutely transferred to IMU 12/25/2024 for change in mental status and likely hypercapnia.
Exertional dyspnea:
Acute on chronic hypercapnic respiratory failure-due to underlying severe COPD suspected/suspect acute exacerbation as well.
pCO2 greater than 100
Hypoxemic respiratory failure-currently on 3 L per L
Possible right lower lobe aspiration pneumonia /pneumonitis
New onset heart failure-unknown type proBNP elevated likely due to RV dysfunction/cor pulmonale.
Shortness of breath/lower extremity edema/increased proBNP-6750
Chest x-ray 12/24/2024: showed hyperinflation. No acute infiltrate.
Negative troponin
EKG: Sinus tachycardia. Possible left atrial enlargement.
CT angiogram: No pulmonary embolism. No significant infiltrates.
Uncontrolled hypertension
Lower extremity swelling, mild erythema bilaterally.
Dopplers: No evidence for DVT
Possible COPD: Without exacerbation.
Tobacco abuse
Plan:
-
Became lethargic, increased work of breathing 12/25/2024.
Found to have severe hypercapnic respiratory failure-requiring emergent BiPAP and transferred to intermediate care unit.
Patient tolerated well-continue BiPAP at the current settings as needed at at bedtime.
Likely would benefit from noninvasive mechanical ventilation at discharge. Set up arranged
ABG continues to show improving hypercapnia
Mental status back to baseline, stable on RA
-
Cor pulmonale: Likely patient has chronic hypoxemia and hypercapnia-does not follow-up with doctors.
Echocardiogram noted with RV dysfunction and severe pulmonary hypertension-CT angiogram without pulmonary embolism or infiltrates.
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
Patient does have metabolic alkalosis on BMP.
-
Acute exacerbation of COPD:
Pulmicort/DuoNebs continue while in the hospital. Likely will need to be discharged on long-acting bronchodilators.
DC IV steroids, switch to prednisone 30 mg daily for 3 more days and discontinue
Pulmonary follow-up will be required upon discharge.
-
Continue antibiotics for community-acquired infection: Suspect possible aspiration-complete 5 days if clinically improved.
Chest x-ray with right lower lobe infiltrate.
Afebrile without leukocytosis
MRSA screening negative
Not producing sputum
-
Gentle diuresis as able given significant RV dysfunction.
Patient is DNR
Avoid sedatives
High risk situation.
-
Cardiology following the patient as well.
On diuresis
Antihypertensive
-
Patient is a smoker-40+ pack year history of smoking. Ongoing.
Nicotine replacement
-
DVT prophylaxis with Lovenox
-
Discharge planning today
Home NIV set up
Pulmonary OP FU discussed with patient, placed in chart
Subjective Data
-
Date of Service:
Date of Service: December 29, 2024
Chief Complaint: Pulmonary Follow Up (Acute hypoxemic respiratory failure)
Subjective:
No new complaints, remains stable on Ra
AVSS, no events ON
Objective Data
Data Reviewed
Vital Signs / I&O / Oxygen:
Vital Signs
Temp Pulse Resp BP Pulse Ox
97.6 F 75 16 153/82 93
12/29/24 03:06 12/29/24 08:29 12/29/24 07:37 12/29/24 08:29 12/29/24 07:37
Intake and Output
12/28/24 12/29/24 12/30/24
06:59 06:59 06:59
Intake Total 720 / 720 720 / 720
Output Total 3425 / 3425 2600 / 2600
Balance -2705 / -2705 -1880 / -1880
SaO2 93
Nasal Cannula flow liters per 2
minute
Physical Exam
General: Comfortable and Good Appetite
HEENT: Normocephalic and Moist Mucous Membranes
Cardiovascular: S1-S2, Regular Rhythm and Peripheral Edema (1+ pedal edema bilaterally overall improving)
Respiratory: Clear and Non-Labored Respirations
GI: Soft, Non Distended, Non Tender and Normal Bowel Sounds
Neurology: Awake, Alert, Oriented and No Motor Deficits
Skin: Warm and Good Color
Labs/Micro/Reports
Lab Data
12/29/24 04:31
12/29/24 04:31
Microbiology
12/24/24 17:55 Nose MRSA Screen - Final
No Methicillin Resistant Staphylococcus aureus isolated.
[2024-12-29 09:42] VITALS: BP 122/70; PULSE 78; O2SAT 96
--- NOTE | 2024-12-29 11:13 | W.HF.CON ---
Heart Failure
- LV Function
Left ventricular function study result: LV Ejection fraction >/= 50%
Ejection Fraction Percentage: 55-60
- ARNI
Patient already on ARNI: No
Heart Failure ARNI Not Indicated: LV Ejection Fraction >/= 40%
- ACEI/ARB
Patient already on ACEI/ARB: Yes
- Beta Ana
Patient already on Evidence Based Beta Ana: Yes
- Mineralocorticord Receptor Antagonist
Patient already on MRA: Yes
- SGLT-2 Inhibitor
Patient already on SGLT-2 Inhibitor: No
Heart Failure SGLT-2 Inhibitor Not Indicated: LV Ejection Fraction >40%
- NYHA CHF Classification
NYHA CHF Classification Level: Class III - Symptoms w/ min exertion, interferes w/ nml daily activity (severe pulmonary HTN, COPD)
- ACC/AHA Stage
ACC/AHA Stage: Stage C: Symptomatic Heart Failure
--- NOTE | 2024-12-29 12:47 | CM ---
Addendum entered by Radha Carter RN 12/29/24 14:59:
Spoke with [facility] Teixeira; [facility] is saying they cannot fill the NIV as the notes say patient is tolerating BiPAP which they say is requiring an outpatient sleep study.
Dr Vera notified of above.
CM notified patient NIV machine is not covered by insurance at this time & therefore [facility] not setting him up for that today.
Plan home today with Home O2 & Nebulizer via [facility].
Addendum entered by Radha Carter RN 12/29/24 13:02:
IMM completed.
Original Note:
Patient with Dx Acute on chronic hypercapnic respiratory failure, COPD, new HF, possible PNA. O2 2L. Home O2 Assessment today. PT Eval; No skilled PT needed.
Orders for Home NIV, Home O2, Nebulizer. Dr Vera signed NIV form.
Met with patient who resides with his brother in a 2 story house with 3 outside steps, house divided into 2 apartments, he has [address]- 2 story.
He was independent in ADLs and ambulation, states he was active and drives.
DME - [facility], [facility]
No prior VN or SNF
PCP - sees in [place], can't remember name
Pharmacy - [facility]
Patient agrees to home NIV, Home O2 concentrator/portables and nebulizer through [facility]. He is aware he needs to wait here for portable O2 tank and remainder of resp equipment will be delivered today to his home.
Patient states he feels ready for d/c today. He declined offer for VN. His sister Jacqueline will provide a ride home.
Plan home today with Home NIV, Home O2, Nebulizer via [facility].
--- NOTE | 2024-12-29 16:29 | PTCARENOTE ---
Patient discharged home. Discharge instructions reviewed and all questions answered. Patient left with all known belongings. Patient was taken to main lobby via wheelchair and left with sister.
--- NOTE | 2024-12-30 15:25 | PN.CDI ---
CDI
- -
CDI:
Physician Documentation Request
Admit Date: 12/24/24 12:24
Dear Doctor Sanford,
Patient admitted with acute CHF.
6/8 PN, ' Lethargy and Vomiting on 12/25/24....Rapid Response was called on 12/25/24...I was present for the rapid response; BiPAP ordered, patient started vomiting so BiPAP had to be held, but BiPAP was later able to be resumed....Suspected RLL
Pneumonia on CXR.'
Please clarify the following:
Pneumonia was present on admission (Please specify the type of pneumonia)
Pneumonia was not present on admission but evolved during hospitalization (Please specify the type of pneumonia)
Unable to determine
Use of terms such as suspected, likely, concern for, or probable (associated with a specific diagnosis that is being evaluated, monitored, or treated as if it exists) are acceptable and can be coded in the inpatient setting, when documented at the
time of discharge.
Thank you,
Aiyana JACKSON,RN,CCDS
CDI Specialist
Available via [place] text
Please use your independent medical judgment in providing your response.
== END 2024-12-29 16:38 | disposition home health service (06) | DRG 193 ==
LOC: IMU 12:24
PROVIDERS: Nurse Practitioner; Physician Assistant; ADMITTING PHYSICIAN Hospitalist; ATTENDING PHYSICIAN Hospitalist; CONSULT PHYSICIAN Internal Medicine; CONSULT PHYSICIAN Internal Medicine Critical Care Medicine; EMERGENCY PHYSICIAN Emergency Medicine
PROC: 5A09357 Assistance with Respiratory Ventilation, Less than 24 Consecutive Hours, Continuous Positive Airway Pressure (ICD-10-PCS; 2024-12-25)
DX: J18.9 Pneumonia, unspecified organism (principal); I50.31 Acute diastolic (congestive) heart failure; J96.01 Acute respiratory failure with hypoxia; J96.22 Acute and chronic respiratory failure with hypercapnia; J44.1 Chronic obstructive pulmonary disease with (acute) exacerbation; L03.115 Cellulitis of right lower limb; I11.0 Hypertensive heart disease with heart failure; J69.0 Pneumonitis due to inhalation of food and vomit; I16.0 Hypertensive urgency; Z66 Do not resuscitate; F17.210 Nicotine dependence, cigarettes, uncomplicated; I36.1 Nonrheumatic tricuspid (valve) insufficiency; I27.81 Cor pulmonale (chronic); I27.20 Pulmonary hypertension, unspecified; Z71.6 Tobacco abuse counseling; Z79.899 Other long term (current) drug therapy
CPT/HCPCS: 36600; 71045; 71046; 71275; 80048; 80053; 80061; 81003; 81015; 82805; 82962; 83036; 83605; 83735; 83880; 84484; 85025; 85027; 85379; 85610; 85730; 87070; 92526; 92610; 93005; 93306; 93970; 94640; 94660; 96374; 97162; 99285; Q9967